=== PATIENT | male | born 1955 | race Caucasian/White ===

== ENCOUNTER 2018-12-25 10:55 | Emergency (ER) | payer BC ==
[~2018-12-25] VITALS: Ht 182.9 cm; Wt 106.6 kg
[~2018-12-25 10:55] MED LIST: ASPI325; CHLO25B PO; CYCL10 PO; HYDACE10B PO; HYDACE5 PO; IBUP800 PO; LISI20 PO; META800 PO; METF500 PO; NAPR500 PO; Norco 5-325 Ta1 EACH PO; PROPRANOLOL
[2018-12-25] MEDS ORDERED: LOPE2C PO (11:18)
[2018-12-25] MEDS ORDERED: DILTIAZEM 24HR120 M1 PO (11:18)
[2018-12-25] MEDS ORDERED: Spironolactone25 MG PO (11:19)
[2018-12-25] MEDS ORDERED: Neurontin 100100 MG PO (11:19)
[2018-12-25] MEDS ORDERED: HYDRA25 PO (11:19)
[2018-12-25] MEDS ORDERED: ATORVASTATIN CA40 MG PO (11:20)
== END 2018-12-25 13:29 | disposition home or self-care (01) ==
LOC: ER 10:55
DX: S06.9X9A Unspecified intracranial injury with loss of consciousness of unspecified duration, initial encounter (principal); S20.211A Contusion of right front wall of thorax, initial encounter; S40.011A Contusion of right shoulder, initial encounter; S30.0XXA Contusion of lower back and pelvis, initial encounter; J90 Pleural effusion, not elsewhere classified; R18.8 Other ascites; E11.9 Type 2 diabetes mellitus without complications; I10 Essential (primary) hypertension; F17.210 Nicotine dependence, cigarettes, uncomplicated; Z79.899 Other long term (current) drug therapy; W22.8XXA Striking against or struck by other objects, initial encounter
CPT/HCPCS: 70450; 71101; 99284-25

== ENCOUNTER 2019-01-04 14:49 | Day surgery (SDC) | payer OTHER ==
[~2019-01-04 14:49] MED LIST changes: +ATORVASTATIN CA40 MG PO; +DILTIAZEM 24HR120 M1 PO; +HYDRA25 PO; +LOPE2C PO; +Neurontin 100100 MG PO; +Spironolactone25 MG PO
== END 2019-01-04 22:35 | disposition home or self-care (01) ==
LOC: US 14:49
DX: R18.8 Other ascites (principal); K72.90 Hepatic failure, unspecified without coma
CPT/HCPCS: 49083

== ENCOUNTER 2019-02-07 10:43 | Emergency (ER) | payer OTHER ==
[~2019-02-07] VITALS: Ht 182.9 cm; Wt 99.8 kg
[2019-02-07] MEDS ORDERED: FURO40 PO (11:01)
[2019-02-07 11:50] LABS: BASOPHILS ABSOLUTE AUTO 0.06 K/mm3 (0.00-0.23); BASOPHILS PERCENT AUTO 1 % (0-2); EOSINOPHILS ABSOLUTE AUTO 0.24 K/mm3 (0.00-0.68); EOSINOPHILS PERCENT AUTO 4 % (0-6); Hematocrit 28.2 % (37.0-53.0); Hemoglobin 9.3 g/dL (13.5-17.5); IMMATURE GRAN ABSOLUTE AUTO 0.02 K/mm3 (0.00-0.10); IMMATURE GRAN PERCENT AUTO 0 % (0-1); LYMPHOCYTES PERCENT AUTO 6 % (21-46); MONOCYTES ABSOLUTE AUTO 0.59 K/mm3 (0.16-1.47); MONOCYTES PERCENT AUTO 9 % (4-13); Mean Corpuscular HGB 32.9 pg (26.0-34.0); Mean Corpuscular Volume 100 fL (80-100); Mean Platelet Volume 11.2 fL (9.1-12.4); NEUTROPHILS ABSOLUTE AUTO 5.05 K/mm3 (1.96-9.15); NEUTROPHILS PERCENT AUTO 79 % (41-73); Platelet Count 119 K/mm3 (150-400); RDW Coefficient Variation 14.2 % (11.7-14.2); RDW Standard Deviation 50.9 fL (35.1-46.3); Red Blood Cell Count 2.83 M/mm3 (4.30-5.90); White Blood Cell Count 6.36 K/mm3 (4.00-11.30)
[2019-02-07 12:12] LABS: Albumin, Blood 2.5 g/dL (3.4-5.0); Albumin/Globulin Ratio 0.4 (0.8-1.8); Bilirubin, Total 1.8 mg/dL (0.1-1.0); Bun/Creatinine Ratio 28.7 (12.0-20.0); Calcium, Blood 8.4 mg/dL (8.5-10.1); Creatinine, Blood 1.81 mg/dL (0.60-1.20); Globulin, Blood 5.7 g/dL (2.2-4.0); Potassium, Blood 5.1 mmol/L (3.5-5.5); Total Protein, Blood 8.2 g/dL (6.4-8.2)
[2019-02-07 13:00] LABS: Albumin, Body Fluid 0.5 g/dL
[2019-02-07 13:01] LABS: Automated BF WBC Count 0.423 K/mm3 (0-999); Body Fluid WBC Count 423 /mm3 (0-999); RBC Count, Body Fluid 360000 /mm3 (0-0)
[2019-02-07 14:16] LABS: Appearance, Body Fluid Bloody (Clear); Color, Body Fluid Red (None-Yellow); Total Cell Count, Body Fluid 100
[2019-02-09] MEDS ORDERED: CYCL10 PO (23:00)
[2019-02-10] MEDS ORDERED: ATEN25 PO (01:26)
[2019-02-10] MEDS ORDERED: CHLO25B PO (01:28)
[2019-02-10] MEDS ORDERED: CLOBET30L TOP (01:28)
[2019-02-10] MEDS ORDERED: GABA100 PO (01:29)
[2019-02-10] MEDS ORDERED: LISI20 PO (01:29)
[2019-02-10] MEDS ORDERED: ROXICODONE5 MG PO (01:30)
[2019-02-10] MEDS ORDERED: TORS10 PO (01:31)
[2019-02-10] MEDS ORDERED: SILD50TA PO (01:31)
== END 2019-02-07 13:20 | disposition home or self-care (01) ==
LOC: ER 10:43
PROVIDERS: Emergency Medicine
DX: R18.8 Other ascites (principal); K74.60 Unspecified cirrhosis of liver; I10 Essential (primary) hypertension; E11.9 Type 2 diabetes mellitus without complications; F17.210 Nicotine dependence, cigarettes, uncomplicated; Z79.899 Other long term (current) drug therapy
CPT/HCPCS: 36415; 49083; 80053; 82042; 85025; 89051; 99284-25

== ENCOUNTER 2019-02-14 17:00 | Inpatient (IN) | payer OTHER ==
[~2019-02-14] VITALS: Ht 182.9 cm; Wt 102.0 kg
[~2019-02-14 17:00] MED LIST changes: -ATORVASTATIN CA40 MG PO; +CLOBET30L TOP; -DILTIAZEM 24HR120 M1 PO; +FURO40 PO; +GABA100 PO; -LOPE2C PO; +ROXICODONE5 MG PO; -Spironolactone25 MG PO
[2019-02-14 18:14] LABS: BASOPHILS ABSOLUTE AUTO 0.01 K/mm3 (0.00-0.23); BASOPHILS PERCENT AUTO 0 % (0-2); EOSINOPHILS ABSOLUTE AUTO 0.02 K/mm3 (0.00-0.68); EOSINOPHILS PERCENT AUTO 0 % (0-6); Hematocrit 24.7 % (37.0-53.0); Hemoglobin 8.2 g/dL (13.5-17.5); IMMATURE GRAN ABSOLUTE AUTO 0.06 K/mm3 (0.00-0.10); IMMATURE GRAN PERCENT AUTO 1 % (0-1); LYMPHOCYTES PERCENT AUTO 4 % (21-46); MONOCYTES ABSOLUTE AUTO 0.89 K/mm3 (0.16-1.47); MONOCYTES PERCENT AUTO 10 % (4-13); Mean Corpuscular HGB 33.5 pg (26.0-34.0); Mean Corpuscular HGB Conc 33.2 g/dL (31.5-36.5); Mean Platelet Volume 11.3 fL (9.1-12.4); NEUTROPHILS ABSOLUTE AUTO 7.73 K/mm3 (1.96-9.15); NEUTROPHILS PERCENT AUTO 85 % (41-73); Platelet Count 139 K/mm3 (150-400); RDW Standard Deviation 58.9 fL (35.1-46.3); Red Blood Cell Count 2.45 M/mm3 (4.30-5.90); White Blood Cell Count 9.11 K/mm3 (4.00-11.30)
[2019-02-14 18:23] LABS: Mean Corpuscular Volume 101 fL (80-100)
[2019-02-14 18:28] LABS: Albumin, Blood 2.3 g/dL (3.4-5.0); Albumin/Globulin Ratio 0.4 (0.8-1.8); Bilirubin, Total 1.1 mg/dL (0.1-1.0); Bun/Creatinine Ratio 21.5 (12.0-20.0); Calcium, Blood 8.3 mg/dL (8.5-10.1); Creatinine, Blood 4.98 mg/dL (0.60-1.20); Globulin, Blood 5.2 g/dL (2.2-4.0); Potassium, Blood 5.7 mmol/L (3.5-5.5); Total Protein, Blood 7.5 g/dL (6.4-8.2)
[2019-02-14] MEDS ORDERED: TORS10 PO (21:41)
[2019-02-14] MEDS ORDERED: TRAZ50 PO (21:42)
[2019-02-14] MEDS ORDERED: DILTIAZEM 24HR120 M1 PO (21:43)
[2019-02-14] MEDS ORDERED: Spironolactone25 MG PO (21:43)
[2019-02-14] MEDS ORDERED: ATORVASTATIN CA40 MG PO (21:44)
[2019-02-14] MEDS ORDERED: ATEN25 PO (21:44)
[2019-02-14] MEDS ORDERED: Hygroton50 MG PO (21:46)
[2019-02-14] MEDS ORDERED: LOPE2C PO (21:48)
[2019-02-14] MEDS ORDERED: LISI20 PO (21:49)
[2019-02-14] MEDS ORDERED: SILD50TA PO (21:50)
[2019-02-14] MEDS ORDERED: MELATONIN5 M1 PO (21:51)
[2019-02-14] MEDS ORDERED: Vitamin D2000 UNIT PO (21:51)
[2019-02-14 22:04] LABS: PCO2 Arterial 29.4 mmHg (35-45); pH Blood Arterial 7.35 (7.35-7.45)
--- NOTE | 2019-02-15 01:59 | NUR ---
02/14/19 2310 PT ADMITTED TO PCU-4 PER CART FROM ER. 02/15/19 0045 CASTORENA CATHETER #16 FILIPINO INSERTED VIA STERILE TECHNIQUE WITH 50ML CLEAR YELLOW FLUID NOTED.
--- NOTE | 2019-02-15 02:45 | NUR ---
02/15/[address] AMARO CALLED AND UPDATED ON ALL LABS, INITIAL BLADDER SCAN REFLECTS AMOUNT > 999, PT DID VOID 200ML URINE AT 0030 (24 HOUR URINE STARTED). 0045 CASTORENA CATHETER PLACED WITH 50ML URINE NOTED INSTANT RETURN (TOLERATED PROCEDURE WELL).
--- NOTE | 2019-02-15 02:48 | NUR ---
SHIFT SUMMARY: 63 Y/O MALE RESTED HAD RESTLESS SHIFT AT TIMES, PT ABDOMINAL REGION HARD, ROUND TO TOUCH WITH ASCITES NOTED, DENIES RESPIRATORY DISTRESS, PT VOICED HE LIVES ALONE AND IS ESTRANGED FROM ALL HIS 4 KIDS AND FAMILIES WHOM ALL LIVE BACK IN [place], [place]. PT RECEIVING IV 1/2 NS WITH TWO AMPULES SODIUM BICARBONATE AT 75 ML/HR VIA PUMP. PT ATTEMPTED HAVE BM ON BSC WITH NO RESULTS, TRANSFERRED WITH MUCH DIFFICULTY AND REQUIRED TWO STANDBY ASSIST WITH BALANCE VERY UNSTEADY, BED IN LOW POSITION WITH CALL LIGHT AT SIDE, ALERT AND ORIENTED X 4.
[2019-02-15 03:54] LABS: BASOPHILS ABSOLUTE AUTO 0.01 K/mm3 (0.00-0.23); BASOPHILS PERCENT AUTO 0 % (0-2); EOSINOPHILS ABSOLUTE AUTO 0.04 K/mm3 (0.00-0.68); EOSINOPHILS PERCENT AUTO 1 % (0-6); Hematocrit 22.3 % (37.0-53.0); Hemoglobin 7.3 g/dL (13.5-17.5); IMMATURE GRAN ABSOLUTE AUTO 0.03 K/mm3 (0.00-0.10); IMMATURE GRAN PERCENT AUTO 1 % (0-1); LYMPHOCYTES ABSOLUTE AUTO 0.33 K/mm3 (0.84-5.20); LYMPHOCYTES PERCENT AUTO 5 % (21-46); MONOCYTES ABSOLUTE AUTO 0.62 K/mm3 (0.16-1.47); MONOCYTES PERCENT AUTO 10 % (4-13); Mean Corpuscular HGB 32.9 pg (26.0-34.0); Mean Corpuscular HGB Conc 32.7 g/dL (31.5-36.5); Mean Corpuscular Volume 101 fL (80-100); Mean Platelet Volume 10.8 fL (9.1-12.4); NEUTROPHILS ABSOLUTE AUTO 5.08 K/mm3 (1.96-9.15); NEUTROPHILS PERCENT AUTO 83 % (41-73); Platelet Count 116 K/mm3 (150-400); RDW Coefficient Variation 16.1 % (11.7-14.2); RDW Standard Deviation 57.3 fL (35.1-46.3); Red Blood Cell Count 2.22 M/mm3 (4.30-5.90); White Blood Cell Count 6.11 K/mm3 (4.00-11.30)
[2019-02-15 04:18] LABS: CPK Creatine Kinase 252 U/L (39-308); Magnesium, Blood 2.3 mg/dL (1.6-2.4); Uric Acid, Blood 10.4 mg/dL (3.5-7.2)
[2019-02-15 04:23] LABS: Alanine Aminotransfer (ALT/SGP 74 U/L (12-78); Albumin, Blood 2.4 g/dL (3.4-5.0); Albumin/Globulin Ratio 0.5 (0.8-1.8); Alk Phos 186 U/L (50-136); Anion Gap 9 mmol/L (6-16); Aspartate Aminotrans (AST/SGOT 193 U/L (12-37); Bilirubin, Total 1.1 mg/dL (0.1-1.0); Blood Urea Nitrogen 106 mg/dL (8-24); Bun/Creatinine Ratio 21.9 (12.0-20.0); CO2, Blood 19 mmol/L (21-32); Calcium, Blood 7.7 mg/dL (8.5-10.1); Chloride, Blood 103 mmol/L (98-108); Creatinine, Blood 4.83 mg/dL (0.60-1.20); Globulin, Blood 4.9 g/dL (2.2-4.0); Glomerular Filtration Rate 13 (60-); Glucose, Blood 178 mg/dL (70-99); Phosphorus, Blood 5.8 mg/dL (2.5-4.9); Sodium, Blood 131 mmol/L (136-145); Total Protein, Blood 7.3 g/dL (6.4-8.2)
--- NOTE | 2019-02-15 06:00 | NUR ---
ASSUMED CARE AT 0330. CONVERSIVE AND NO ACUTE PAIN OR DISCOMFORT. FOOD TAKEN AND NO GI DISTESS. PLACEDL CALL TO DR AMARO W/ LAB . ORDERS GIVEN AND ESTABLISHED . SOME FINGER AND LEG MUSCLE CRAMPING IS ONLY COMPLAINT.MEALL GIVEN POST TALKING W/ AIRPORT OPERATIONS SUPERVISOR
--- NOTE | 2019-02-15 11:34 | NUR ---
PT TAKEN TO IMAGING. WILL AWAIT RETURN.
--- NOTE | 2019-02-15 12:35 | NUR ---
PT RETURNED. PER REPORT 5L REMOVED DURING PARACENTESIS. VS STABLE. PT REPORTS FEELING "BETTER". PT STATES IT IS EASIER TO BREATHE AND NOT MUCH PRESSURE ON HIS ABD. WILL CONTINUE TO MONITOR CLOSELY.
[2019-02-15 13:15] LABS: Automated BF RBC Count 0.414 M/mm3 (0-0); Automated BF WBC Count 0.239 K/mm3 (0-999); Body Fluid WBC Count 239 /mm3 (0-999); RBC Count, Body Fluid 414000 /mm3 (0-0)
--- NOTE | 2019-02-15 13:48 | NUR ---
Spiritual care visit conducted. Patient is lying in bed and alert. Patient immediately tells me about his medical condition, his family unit complications, and his service in the [employer]. Patient begins to tell me about how he is coping and patient's doctor came in and tried to regain the therapeutic alliance that was occuring and we were interupted again as patient was taken from his room for a procedure. I will continue to remain available to patient and family.
[2019-02-15 14:46] LABS: Appearance, Body Fluid Bloody (Clear); Color, Body Fluid Red (None-Yellow); Total Cell Count, Body Fluid 100
[2019-02-15 15:09] LABS: BASOPHILS ABSOLUTE AUTO 0.01 K/mm3 (0.00-0.23); BASOPHILS PERCENT AUTO 0 % (0-2); EOSINOPHILS ABSOLUTE AUTO 0.04 K/mm3 (0.00-0.68); EOSINOPHILS PERCENT AUTO 1 % (0-6); Hematocrit 22.9 % (37.0-53.0); Hemoglobin 7.5 g/dL (13.5-17.5); IMMATURE GRAN ABSOLUTE AUTO 0.03 K/mm3 (0.00-0.10); IMMATURE GRAN PERCENT AUTO 1 % (0-1); LYMPHOCYTES ABSOLUTE AUTO 0.33 K/mm3 (0.84-5.20); LYMPHOCYTES PERCENT AUTO 5 % (21-46); MONOCYTES ABSOLUTE AUTO 0.89 K/mm3 (0.16-1.47); MONOCYTES PERCENT AUTO 14 % (4-13); Mean Corpuscular HGB 32.8 pg (26.0-34.0); Mean Corpuscular HGB Conc 32.8 g/dL (31.5-36.5); Mean Corpuscular Volume 100 fL (80-100); NEUTROPHILS ABSOLUTE AUTO 5.13 K/mm3 (1.96-9.15); NEUTROPHILS PERCENT AUTO 80 % (41-73); Platelet Count 102 K/mm3 (150-400); RDW Coefficient Variation 16.1 % (11.7-14.2); Red Blood Cell Count 2.29 M/mm3 (4.30-5.90); White Blood Cell Count 6.43 K/mm3 (4.00-11.30)
--- NOTE | 2019-02-15 17:53 | NUR ---
SHIFT SUMMARY PT ALERT AND ORIENTED. VS STABLE. O2 SATS REMAIN ABOVE 90% ON RA. BP STABLE. PT RECEIVING 1U PRBC AT THIS TIME WITHOUT ANY SIGNS/SYMPTOMS OF TRANSFUSION REACTION. PT DENIES ANY PAIN. CASTORENA PATENT AND DRAINING. PT AMBULATING IN ROOM WITH SBA AND FWW. WILL CONTINUE TO MONITOR AND REPORT TO ONCOMING RN. CALL LIGHT IN REACH. PT SITTING UP EATING DINNER.
[2019-02-16 02:22] LABS: Protein, Urine Quantitative 40.3 mg/dL (0.0-11.9)
[2019-02-16 03:37] LABS: BASOPHILS ABSOLUTE AUTO 0.01 K/mm3 (0.00-0.23); BASOPHILS PERCENT AUTO 0 % (0-2); EOSINOPHILS ABSOLUTE AUTO 0.02 K/mm3 (0.00-0.68); EOSINOPHILS PERCENT AUTO 0 % (0-6); Hematocrit 25.7 % (37.0-53.0); Hemoglobin 8.5 g/dL (13.5-17.5); IMMATURE GRAN ABSOLUTE AUTO 0.04 K/mm3 (0.00-0.10); IMMATURE GRAN PERCENT AUTO 1 % (0-1); LYMPHOCYTES ABSOLUTE AUTO 0.34 K/mm3 (0.84-5.20); LYMPHOCYTES PERCENT AUTO 5 % (21-46); MONOCYTES PERCENT AUTO 11 % (4-13); Mean Corpuscular HGB 31.6 pg (26.0-34.0); Mean Corpuscular HGB Conc 33.1 g/dL (31.5-36.5); Mean Platelet Volume 10.5 fL (9.1-12.4); NEUTROPHILS ABSOLUTE AUTO 5.36 K/mm3 (1.96-9.15); NEUTROPHILS PERCENT AUTO 83 % (41-73); Platelet Count 113 K/mm3 (150-400); RDW Coefficient Variation 15.9 % (11.7-14.2); RDW Standard Deviation 54.4 fL (35.1-46.3); Red Blood Cell Count 2.69 M/mm3 (4.30-5.90); White Blood Cell Count 6.47 K/mm3 (4.00-11.30)
[2019-02-16 03:54] LABS: Mean Corpuscular Volume 96 fL (80-100)
[2019-02-16 03:59] LABS: Albumin, Blood 2.6 g/dL (3.4-5.0); Albumin/Globulin Ratio 0.6 (0.8-1.8); Bilirubin, Total 1.9 mg/dL (0.1-1.0); Bun/Creatinine Ratio 25.2 (12.0-20.0); Calcium, Blood 7.8 mg/dL (8.5-10.1); Creatinine, Blood 3.89 mg/dL (0.60-1.20); Globulin, Blood 4.4 g/dL (2.2-4.0); Magnesium, Blood 2.3 mg/dL (1.6-2.4); Phosphorus, Blood 4.7 mg/dL (2.5-4.9); Potassium, Blood 4.8 mmol/L (3.5-5.5)
--- NOTE | 2019-02-16 05:30 | NUR ---
SHIFT SUMMARY PT SLEEPING IN ROOM COMFORTABLY AT THIS TIME. PT HAD SOME CHANGES IN MENTAL STATUS T/O NIGHT. AT START OF SHIFT PT WAS AOX4 AND ADIMENTLY REFUSED TO TAKE NIGHT TIME DOSE OF LACTULOSE. MED WAS HELD AND DOCUMENTED NOT GIVEN. SHIFT PROCEDED, PT BECAME MORE ALTERED,AND WAS GETTING OUT OF BED AND UNSTEADY ON FEET. BED ALARM WAS INITIATED ON PT, AND PT SET ALRM OFF MULITPLE TIMES. PM DOSE OF LACTULOSE WAS THEN GIVEN AFTER DISCUSSION WITH C D REACTOR OPERATOR, GIVEN NONSCHEDULED D/T PT AMS. PT WAS ABLE TO TOLERATE PO INTAKE OF LACTULOSE WELL. PT HAS SINCE APPEARED TO BE MORE RELAXED IN ROOM AND SLEEPING MORE RESTFULLY. RESP EVEN UNLABORED ON RA W/ SATS >92%. PT DENIED PAIN T/O NIGHT. MULTIPLE SOFT STOOLS NOTED. CALL [facility] IN REACH. BED ALARM ON.
--- NOTE | 2019-02-16 07:38 | NUR ---
pt laying in bed on his side, wakes up enough to answer a few questions, returns to sleep immed, vs stable, he knows where he is, attempts to follow commands, needs lots of reminders, lungs are clear, dim t/o, resp even and unlabored, no cough noted, hrr, tele in place running sr per monitor, see strip, no edema noted, ppp+2, cap refill <3sec, vs stable afebrile, iv site is clear and patent, abd very distended, firm, hernandez cath draining clear yellow urine, skin ok, maew, zahida, call light in reach.
--- NOTE | 2019-02-16 12:33 | NUR ---
pt laying on his side sleeping when not being disturbed, no changes since morning, eating a bit of lunch. has got himself tangled in his gown several times, a bit confused. call light in reach.
--- NOTE | 2019-02-16 18:12 | NUR ---
pt has slept most of the day, he is easier to wake as the day progresses, no acute changes, call light in reach.
[2019-02-17 03:59] LABS: Hematocrit 24.7 % (37.0-53.0); Hemoglobin 8.3 g/dL (13.5-17.5)
[2019-02-17 04:24] LABS: Albumin, Blood 2.5 g/dL (3.4-5.0); Anion Gap 8 mmol/L (6-16); Blood Urea Nitrogen 95 mg/dL (8-24); Bun/Creatinine Ratio 29.2 (12.0-20.0); CO2, Blood 23 mmol/L (21-32); Chloride, Blood 106 mmol/L (98-108); Creatinine, Blood 3.25 mg/dL (0.60-1.20); Glomerular Filtration Rate 21 (60-); Glucose, Blood 162 mg/dL (70-99); Magnesium, Blood 2.2 mg/dL (1.6-2.4); Phosphorus, Blood 4.3 mg/dL (2.5-4.9); Potassium, Blood 4.6 mmol/L (3.5-5.5); Sodium, Blood 137 mmol/L (136-145)
--- NOTE | 2019-02-17 06:31 | NUR ---
SHIFT SUMMARY PT SLEEPING IN ROOM COMFORTABLY AT THIS TIME. PT HAS HAD AMS T/O NIGHT. PT APPEARED TO BE MORE ORIENTED TO SURROUNDINGS AT START OF SHIFT, PT WAS ABLE TO STATE HE WAS IN A HOSPITAL, BUT UNABLE TO STATE DATE, OR WHY HE WAS THERE. PT BECAME SIGNIFICANTLY MORE AGGITATED IN ROOM T/O NIGHT, CONTINUED TO GET OUT OF BED SETTING OFF BED ALARM. PT IS VERY UNSTEADY ON FEET AND MULTIPLE STAFF MEMBERS WERE NEEDED TO ASSIST PT BACK TO BED. THIS AM AT APPROX 0500 PT BECAME MORE COMBATIVE AND REFUSED TO FOLLOW DIRECTIONS AFTER ATTEMPTING TO GET OUT OF BED AND NEARLYING FALLING TWICE, AND HAVING TO BE STEADIED BY STAFF. PT CONTINUED TO REFUSE TO GET BACK INTO BED. 4 STAFF MEMBERS WERE REQUIRED TO GET PT BACK INTO BED AND BOOSTED. PROVIDER CALLED FOR RATNA VEST FOR PT SAFETY. VEST APPLIED TO PT PER ORDERS. RESP EVEN UNLABORED ON RA W/ SATS >92%. SODIUM BICARB INFUSING IN PIV. CALL IGHT IN REACH. BED ALARM REMAINS ON FOR SAFETY.
[2019-02-17 07:08] LABS: ANTIGLOMERULAR BM AB 4 units (0-20)
[2019-02-17 08:38] LABS: International Normalized Ratio 1.45; Prothrombin Time Results 14.9 Sec (9.7-11.5)
[2019-02-17 13:07] LABS: ANA DIRECT Negative (Negative); ANTIMYELOPEROXIDASE (MPO) ABS <9.0 U/mL (0.0-9.0); ANTIPROTEINASE 3 (PR-3) ABS 13.1 U/mL (0.0-3.5); ATYPICAL PANCA <1:20 titer (Neg:<1:20); CYTOPLASMIC (C-ANCA) <1:20 titer (Neg:<1:20); PERINUCLEAR (P-ANCA) <1:20 titer (Neg:<1:20)
[2019-02-17 16:06] LABS: A/G RATIO 0.7 (0.7-1.7); ALBUMIN 2.6 g/dL (2.9-4.4); ALPHA-1-GLOBULIN 0.3 g/dL (0.0-0.4); ALPHA-2-GLOBULIN 0.4 g/dL (0.4-1.0); BETA GLOBULIN 0.8 g/dL (0.7-1.3); GAMMA GLOBULIN 2.5 g/dL (0.4-1.8); IMMUNOGLOBULIN A, QN, SERUM 519 mg/dL (61-437); IMMUNOGLOBULIN G, QN, SERUM 2474 mg/dL (700-1600); IMMUNOGLOBULIN M, QN, SERUM 113 mg/dL (20-172); M-SPIKE Not Observed g/dL (Not Observed); PROTEIN, TOTAL, SERUM 6.6 g/dL (6.0-8.5)
[2019-02-17 16:06] LABS: Automated BF RBC Count 0.212 M/mm3 (0-0); Automated BF WBC Count 0.218 K/mm3 (0-999); Body Fluid WBC Count 218 /mm3 (0-999); RBC Count, Body Fluid 212000 /mm3 (0-0)
[2019-02-17 16:30] LABS: Glucose, Body Fluid 178 mg/dL; Protein, Body Fluid 1.6 g/dL
[2019-02-17 16:50] LABS: Appearance, Body Fluid Cloudy (Clear); Color, Body Fluid Red (None-Yellow); Total Cell Count, Body Fluid 100
--- NOTE | 2019-02-17 18:05 | NUR ---
SHIFT SUMMARY PT RESTING IN BED THROUGHOUT THE DAY. ALERT AND ORIENTED TO SELF THIS AM, NOT FOLLOWING COMMANDS WELL. ORIENTED TO SELF AND PLACE THIS AFTERNOON, FOLLOWING COMMANDS MORE APPROPRIATELY. DENIES PAIN THROUGHOUT THE DAY. VSS. PT AGITATED THE MAJORITY OF THE DAY, TRYING TO GET OUT OF BED AND PULLING AT LINES, YELLING AT TIMES. PT AGITATED THROUGHOUT THE ULTRASOUND. RADIOLOGIST REQUESTS SEDATION FOR PARACENTESIS. ABDOMEN SEVERELY DISTENDED, US GUIDED PARACENTESIS DONE IN IMAGING, 9.5L REMOVED, PT TOLERATED WELL. PT SLEEPING THROUGHOUT THE AFTERNOON. WILL CONTINUE TO MONITOR AND REPORT OFF TO RITUAL CIRCUMCISER RN.
--- NOTE | 2019-02-18 | NUR ---
RATNA NAVA D/C'D pt alert and oriented, following commands. No longer pulling on lines, AMS clearing. Pt no longer requiring restraint to maintain safety, pt with pleasant affect at this time, calm and cooperative with care.
[2019-02-18 03:47] LABS: BASOPHILS ABSOLUTE AUTO 0.02 K/mm3 (0.00-0.23); BASOPHILS PERCENT AUTO 0 % (0-2); EOSINOPHILS ABSOLUTE AUTO 0.21 K/mm3 (0.00-0.68); EOSINOPHILS PERCENT AUTO 5 % (0-6); Hematocrit 30.7 % (37.0-53.0); Hemoglobin 10.1 g/dL (13.5-17.5); IMMATURE GRAN ABSOLUTE AUTO 0.01 K/mm3 (0.00-0.10); IMMATURE GRAN PERCENT AUTO 0 % (0-1); LYMPHOCYTES PERCENT AUTO 7 % (21-46); MONOCYTES ABSOLUTE AUTO 0.44 K/mm3 (0.16-1.47); MONOCYTES PERCENT AUTO 10 % (4-13); Mean Corpuscular HGB 32.1 pg (26.0-34.0); Mean Corpuscular HGB Conc 32.9 g/dL (31.5-36.5); Mean Corpuscular Volume 98 fL (80-100); Mean Platelet Volume 10.9 fL (9.1-12.4); NEUTROPHILS PERCENT AUTO 78 % (41-73); Platelet Count 117 K/mm3 (150-400); RDW Coefficient Variation 15.8 % (11.7-14.2); RDW Standard Deviation 55.8 fL (35.1-46.3); Red Blood Cell Count 3.15 M/mm3 (4.30-5.90); White Blood Cell Count 4.48 K/mm3 (4.00-11.30)
[2019-02-18 04:01] LABS: International Normalized Ratio 1.36
[2019-02-18 04:06] LABS: Albumin, Blood 3.4 g/dL (3.4-5.0); Albumin/Globulin Ratio 0.8 (0.8-1.8); Bilirubin, Total 1.5 mg/dL (0.1-1.0); Bun/Creatinine Ratio 32.8 (12.0-20.0); Calcium, Blood 8.5 mg/dL (8.5-10.1); Creatinine, Blood 2.65 mg/dL (0.60-1.20); Globulin, Blood 4.5 g/dL (2.2-4.0); Magnesium, Blood 2.4 mg/dL (1.6-2.4); Phosphorus, Blood 3.5 mg/dL (2.5-4.9); Potassium, Blood 4.1 mmol/L (3.5-5.5); Total Protein, Blood 7.9 g/dL (6.4-8.2)
--- NOTE | 2019-02-18 06:20 | NUR ---
Shift Summary Overall, pt improved this shift. AMS clearing substantially, pt is now alert and oriented x4, following commands appropriately, calm and cooperative with care. Josephine d/c'd this shift. VSS. pt with no acute declines this shift, no acute concerns to note. See shift assessment for detailed assessment. Pt remains stable on RA. Moving all extremities appropriately, SBA to BSC with improved strength. Pt has been calling appropriately to make needs known this shift. OVerall, status improved.
--- NOTE | 2019-02-18 08:59 | NUR ---
AM NOTE. ASSUMED CARE OF PT APROX 0700. PT IS A&Ox4. PT WAS ADMITTED FOR RENAL FAILURE. PT HAD PARACENTESIS YESTERDAY. PT'S VS STABLE. PT DENIES PAIN AT THIS TIME. PT SBA TO THE CHAIR FOR BREAKFAST. CASTORENA PATENT AND DRAINING TO GRAVITY. CALL LIGHT IN REACH, BED IS LOCKED AND LOW WILL CONTINUE TO MONITOR.
--- NOTE | 2019-02-18 10:56 | NUR ---
Initial palliative care consult: Juan is a 63 year old with a history of cirrohsis of the liver, history of Hep C s/p medications for curative tx, HTN, and DM type 2. Juan lives alone in a 33 ft trailer in [place] with his dog. He tells this commercial insurance underwriter his friend, Moris Mcdonald, is his alternative decision maker. He was admitted on 02/14/19 with increasing weakness, muscle cramps, worsening edema. He reports he was helping his friend move a refrigerator about 8 weeks ago when he sustained a fall and hit his ribs and head. He reports he did not seek medical attention until about 6 days later and he had some fractured ribs on the right. He reports that prior to this injury he was independent, walked his dog a couple times a week and enjoyed going for drives. He reports that over the past two weeks that he has become weaker, has had a poor appetite and weight gain. Cramps that were worsening and not going away was the reason that he sought medical attention for this admit. He [facility], [facility]. He reports he has had to cancel the last two appointments with Vasquez as he has been ill. He receives his medications through the [facility]. His first ever paracentesis was last Thursday. He has had two additional paracentesis in the past week. His abdomen remains distended, however he reports he is feeling much better, his appetite has improved and he currently denies pain and nausea. He reports the ringing he had in his ears is now gone. He is hoping to go home soon. He reports that he quit smoking about a week ago and is currently using a 7 mg nicotine patch. He reports he has "Smoked for forever" and states that his beloved dog, Monique, is the reason he quit. "I don't want to expose her to my second hand smoke." Juan reports he doesn't remember much about yesterday, however he points to the cheyenne vest in the corner of the room and tells me that he had to wear it yesterday. He is being followed by GI and nephro as well as the hospitalist. He reports Dr. Jones visited with him briefly this morning as well as Dr. Ritchie. He doesn't remember seeing the GI doctor yesterday. Progress notes reviewed from physicians. Asked Juan if anyone has ever mentioned to him about a liver transplant. Juan reports he has talked with his PCP at the [facility] about a liver transplant once, quite awhile ago. He reports that he would like to talk to the PCP again to find out more information about the process for a liver transplant. He is unsure if he would want to consider that option without finding out more information. Disease process education started. Discussed code status and AD/POLST. He reports that he does not believe he has either of these documents at the [facility]. AD booklet left on his bedside table per his request. He confirms his full code status at this time and states that his friend Moris Mcdonald will have to medical decisions for him if necessary. Will contact the [facility] medical records department to see if he does in fact have one of these forms on file in their system. PC will continue to follow for disease process education, symptom management, completion of AD if pt chooses to fill out while in the hospital and advanced care planning.
--- NOTE | 2019-02-18 17:31 | NUR ---
SHIFT SUMMARY PATIENT IS PLEASANT, ALERT AND ORIENTED. MOVES AROUND INDEPENDENTLY TO STAND BY ASSIST. DOES CALL APPROPRIATELY. NO ACUTE CONCERNS AT THIS TIME. TRANSFER FROM PCU TODAY. PATIENT DENIES PAIN, STATES HE IS FEELING BETTER TODAY.
--- NOTE | 2019-02-19 02:39 | NUR ---
SHIFT SUMMARY AOX4. IND TO BSC, OTHERWISE SBA. LS CLEAR, DENIES SOB. NO C/O NAUSEA OR PAIN. ASCITES, NON-TENDER ABDOMEN BUT FIRM. SCATTERED BRUISING THROUGHOUT. IV IN R FOREARM HAS NS @ 50. CASTORENA DRAINING CLEAR MATHEW URINE. BLOOD GLUCOSE BEFORE MEALS. VSS ON RA. UNSURE OF DC PLAN AT THIS TIME. NO COMPLAINTS OVERNIGHT.
[2019-02-19 05:17] LABS: BASOPHILS ABSOLUTE AUTO 0.02 K/mm3 (0.00-0.23); BASOPHILS PERCENT AUTO 0 % (0-2); EOSINOPHILS ABSOLUTE AUTO 0.25 K/mm3 (0.00-0.68); EOSINOPHILS PERCENT AUTO 5 % (0-6); Hemoglobin 9.7 g/dL (13.5-17.5); IMMATURE GRAN ABSOLUTE AUTO 0.02 K/mm3 (0.00-0.10); IMMATURE GRAN PERCENT AUTO 0 % (0-1); LYMPHOCYTES ABSOLUTE AUTO 0.34 K/mm3 (0.84-5.20); LYMPHOCYTES PERCENT AUTO 7 % (21-46); MONOCYTES ABSOLUTE AUTO 0.64 K/mm3 (0.16-1.47); MONOCYTES PERCENT AUTO 12 % (4-13); Mean Corpuscular HGB 31.4 pg (26.0-34.0); Mean Corpuscular HGB Conc 32.3 g/dL (31.5-36.5); Mean Corpuscular Volume 97 fL (80-100); Mean Platelet Volume 11.3 fL (9.1-12.4); NEUTROPHILS ABSOLUTE AUTO 3.99 K/mm3 (1.96-9.15); NEUTROPHILS PERCENT AUTO 76 % (41-73); Platelet Count 102 K/mm3 (150-400); RDW Coefficient Variation 15.8 % (11.7-14.2); RDW Standard Deviation 55.3 fL (35.1-46.3); Red Blood Cell Count 3.09 M/mm3 (4.30-5.90); White Blood Cell Count 5.26 K/mm3 (4.00-11.30)
[2019-02-19 05:29] LABS: International Normalized Ratio 1.32; Prothrombin Time Results 13.6 Sec (9.7-11.5)
[2019-02-19 05:56] LABS: Albumin, Blood 2.7 g/dL (3.4-5.0); Albumin/Globulin Ratio 0.6 (0.8-1.8); Bilirubin, Total 1.2 mg/dL (0.1-1.0); Bun/Creatinine Ratio 35.3 (12.0-20.0); Calcium, Blood 8.1 mg/dL (8.5-10.1); Creatinine, Blood 2.38 mg/dL (0.60-1.20); Globulin, Blood 4.2 g/dL (2.2-4.0); Magnesium, Blood 2.4 mg/dL (1.6-2.4); Phosphorus, Blood 3.5 mg/dL (2.5-4.9); Potassium, Blood 4.3 mmol/L (3.5-5.5); Total Protein, Blood 6.9 g/dL (6.4-8.2)
--- NOTE | 2019-02-19 15:33 | NUR ---
CASTORENA AND NAUSEA: PATIENT REPORTING NAUSEA AND REQUESTING DISCONTINUATION OF THE CASTORENA CATHETER. NO CURRENT NEED FOR CASTORENA NOTED. DISCUSSED WITH DR. ELLIOTT. NEW ORDERS RECEIVED FOR NAUSEA AND AGREEMENT FOR THE CATHETER TO BE PULLED.
--- NOTE | 2019-02-19 16:11 | NUR ---
SUMMARY: PATIENT DENIED PAIN THROUGHOUT SHIFT. PATIENT UP TO BATHROOM WITH SBA. PATIENT CALLS APPROPRIATELY. PATIENT DENIES PAIN OR DIFFICULTY BREATHING RELATED TO ASCITES. PATIENT REPORTED NAUSEA AND VOMITING THIS AFTERNOON. DISCUSSED WITH DR. NAQVI. NEW ORDERS FOR ZOFRAN. ALSO DISCUSSED NEED TO CASTORENA. NEW ORDER TO D/C CASTORENA CATHETER. PATIENT TOLERATING IV FLUIDS WELL. NO CHANGES TO LUNG SOUNDS, SOB OR DIFFICULTY BREATHING.
--- NOTE | 2019-02-19 18:02 | NUR ---
Shift Summary Received report from GISSEL Huertas. Patient denies nausea and vomiting, no other acute changes since this RN assumed care.
[2019-02-20 04:10] LABS: BASOPHILS ABSOLUTE AUTO 0.02 K/mm3 (0.00-0.23); BASOPHILS PERCENT AUTO 0 % (0-2); EOSINOPHILS ABSOLUTE AUTO 0.14 K/mm3 (0.00-0.68); EOSINOPHILS PERCENT AUTO 2 % (0-6); Hemoglobin 10.1 g/dL (13.5-17.5); IMMATURE GRAN ABSOLUTE AUTO 0.02 K/mm3 (0.00-0.10); IMMATURE GRAN PERCENT AUTO 0 % (0-1); LYMPHOCYTES ABSOLUTE AUTO 0.27 K/mm3 (0.84-5.20); LYMPHOCYTES PERCENT AUTO 5 % (21-46); MONOCYTES ABSOLUTE AUTO 0.62 K/mm3 (0.16-1.47); MONOCYTES PERCENT AUTO 10 % (4-13); Mean Corpuscular HGB 31.9 pg (26.0-34.0); Mean Corpuscular HGB Conc 32.6 g/dL (31.5-36.5); Mean Corpuscular Volume 98 fL (80-100); Mean Platelet Volume 11.4 fL (9.1-12.4); NEUTROPHILS ABSOLUTE AUTO 4.91 K/mm3 (1.96-9.15); NEUTROPHILS PERCENT AUTO 82 % (41-73); Platelet Count 101 K/mm3 (150-400); RDW Coefficient Variation 15.4 % (11.7-14.2); RDW Standard Deviation 55.7 fL (35.1-46.3); Red Blood Cell Count 3.17 M/mm3 (4.30-5.90); White Blood Cell Count 5.98 K/mm3 (4.00-11.30)
[2019-02-20 04:27] LABS: Albumin, Blood 2.7 g/dL (3.4-5.0); Anion Gap 6 mmol/L (6-16); Blood Urea Nitrogen 82 mg/dL (8-24); Bun/Creatinine Ratio 33.2 (12.0-20.0); CO2, Blood 24 mmol/L (21-32); Calcium, Blood 8.3 mg/dL (8.5-10.1); Chloride, Blood 106 mmol/L (98-108); Creatinine, Blood 2.47 mg/dL (0.60-1.20); Glomerular Filtration Rate 28 (60-); Glucose, Blood 175 mg/dL (70-99); Magnesium, Blood 2.3 mg/dL (1.6-2.4); Phosphorus, Blood 3.8 mg/dL (2.5-4.9); Potassium, Blood 4.2 mmol/L (3.5-5.5); Sodium, Blood 136 mmol/L (136-145)
--- NOTE | 2019-02-20 04:30 | NUR ---
SHIFT SUMMARY AOX4. LS CLEAR, DENIES SOB. NAUSEA HAS BEEN MAIN COMPLAINT. ZOFRAN GIVEN @ 2230 AND PHENERGAN @ 0030. PT HAD SLIGHT HEADACHE LAST NIGHT. R FOREARM IV HAS NS @ 50. INDEPENDENT. ABDOMEN IS STILL FIRM D/T ASCITES. POSSIBLE TAP TODAY. PLAN IS OUTPT TAP 2X WEEK. BLOOD GLUCOSE CHECKS BEFORE MEALS. REFUSED LACTULOSE. VSS ON RA.
[2019-02-20 08:37] LABS: Albumin, Blood 2.7 g/dL (3.4-5.0)
[2019-02-20 15:06] LABS: HEPATITIS C QUANTITATION HCV Not Detected IU/mL (.)
--- NOTE | 2019-02-20 18:06 | NUR ---
SHIFT SUMMARY PATIENT IS PLEASANT, ALERT AND ORIENTED, INDEPENDENT. NO ACUTE CONCERNS AT THIS TIME. HE HAD A PARACENTESIS TODAY WHERE THEY PULLED 8800 CC OF RED FLUID FROM HIS ABDOMEN, PATIENT IS VERY PLEASANT AND STATES HE FEELS MUCH BETTER. SUPPOSED TO DISCHARGE TOMORROW. HIS EX-'S NUMBER IS ON THE BOARD AND SHE REQUESTS ( WELL THE PATIENT) THAT SHE BE CALLED WHEN THE DOCTOR IS TO SEE THE PATIENT TOMORROW IN ORDER TO ASK QUESTIONS ABOUT HIS DISCHARGE.
--- NOTE | 2019-02-20 22:20 | NUR ---
RECEIVED 3RD OF 3 BOTTLES OF ALBUMIN PER MD ORDERS. TOLERATED WELL.
--- NOTE | 2019-02-21 02:55 | NUR ---
RESTING QUIETLY AT INTERVALS. ALBUMIN BOTTLE # 3 INFUSED, ivf INFUSING ORDERED. ONE EPISODE OF NAUSEA, NO EMESIS, AT WHICH TIME HE RECEIVED ZOFRAN. SEE MAR FOR DETAILS. ABD REMAINS DISTENDED. CALL LIGHT IN REACH. ABLE TO AMBLATE WITHOUT ASSIST.
[2019-02-21 04:07] LABS: BASOPHILS ABSOLUTE AUTO 0.01 K/mm3 (0.00-0.23); BASOPHILS PERCENT AUTO 0 % (0-2); EOSINOPHILS ABSOLUTE AUTO 0.08 K/mm3 (0.00-0.68); EOSINOPHILS PERCENT AUTO 1 % (0-6); Hematocrit 30.3 % (37.0-53.0); IMMATURE GRAN ABSOLUTE AUTO 0.03 K/mm3 (0.00-0.10); IMMATURE GRAN PERCENT AUTO 0 % (0-1); LYMPHOCYTES ABSOLUTE AUTO 0.26 K/mm3 (0.84-5.20); LYMPHOCYTES PERCENT AUTO 4 % (21-46); MONOCYTES PERCENT AUTO 10 % (4-13); Mean Corpuscular HGB 31.8 pg (26.0-34.0); Mean Corpuscular Volume 97 fL (80-100); Mean Platelet Volume 10.6 fL (9.1-12.4); NEUTROPHILS ABSOLUTE AUTO 6.15 K/mm3 (1.96-9.15); NEUTROPHILS PERCENT AUTO 85 % (41-73); Platelet Count 82 K/mm3 (150-400); RDW Coefficient Variation 15.3 % (11.7-14.2); RDW Standard Deviation 53.8 fL (35.1-46.3); Red Blood Cell Count 3.14 M/mm3 (4.30-5.90); White Blood Cell Count 7.23 K/mm3 (4.00-11.30)
[2019-02-21 04:26] LABS: Magnesium, Blood 2.4 mg/dL (1.6-2.4)
[2019-02-21 04:27] LABS: Albumin, Blood 2.9 g/dL (3.4-5.0); Albumin/Globulin Ratio 0.6 (0.8-1.8); Bilirubin, Total 1.3 mg/dL (0.1-1.0); Bun/Creatinine Ratio 33.5 (12.0-20.0); Calcium, Blood 8.6 mg/dL (8.5-10.1); Creatinine, Blood 2.45 mg/dL (0.60-1.20); Globulin, Blood 4.6 g/dL (2.2-4.0); Potassium, Blood 3.9 mmol/L (3.5-5.5); Total Protein, Blood 7.5 g/dL (6.4-8.2)
[2019-02-21] MEDS ORDERED: ACET325 PO (12:00)
[2019-02-21] MEDS ORDERED: LACT10SY PO (12:00)
[2019-02-21] MEDS ORDERED: MIDO5 PO (12:01)
[2019-02-21] MEDS ORDERED: NEOM500 PO (12:02)
[2019-02-21] MEDS ORDERED: NICOTINE1 EACH TOP (12:02)
[2019-02-21] MEDS ORDERED: Pedi-Dri 100,0060 GM TOP (12:04)
[2019-02-21] MEDS ORDERED: PROM12.5S PR (12:06)
[2019-02-21] MEDS ORDERED: ONDA4ODT PO (12:06)
--- NOTE | 2019-02-21 14:18 | NUR ---
1224 PT DISCHARGED HOME VIA PERSONAL VEHICLE. IV REMOVED THIS AM IT WAS LEAKING. D/C PAPERWORK REVIEWED WITH PT AND COPY PROVIDED. PT ACKNOWLEDGED UNDERSTANING. [facility], FOLLOW UP APPOINTMENT MADE WITH DR. AMARO, APPOINTMENT WITH MD AT [facility] ALREADY SCHEDULED FOR FIRST THURSDAY OF NEXT MONTH PER PT REPORT. NO NEW CHANGES OR CONCERNS.
[2019-02-21 16:06] LABS: M-SPIKE, % Not Observed % (Not Observed); PROTEIN,TOTAL,URINE 26.6 mg/dL (Not Estab.)
== END 2019-02-21 12:23 | disposition home health service (06) | DRG 441 ==
LOC: ER 17:00 → PCU 20:18 → MEDS 02-18 14:35 → ENPENDDIS 02-21 10:56 → MEDS 02-21 12:23
PROVIDERS: Family Medicine; Internal Medicine Nephrology; Nurse Practitioner Acute Care; Physician Assistant; Student in an Organized Health Care Education/Training Program; ADMIT Hospitalist
PROC: 0W9G3ZX Drainage of Peritoneal Cavity, Percutaneous Approach, Diagnostic (ICD-10-PCS; principal; 2019-02-15)
DX: K76.7 Hepatorenal syndrome (principal); N17.0 Acute kidney failure with tubular necrosis; I12.0 Hypertensive chronic kidney disease with stage 5 chronic kidney disease or end stage renal disease; N18.5 Chronic kidney disease, stage 5; E87.1 Hypo-osmolality and hyponatremia; E87.2 Acidosis; F10.20 Alcohol dependence, uncomplicated; K70.31 Alcoholic cirrhosis of liver with ascites; E11.22 Type 2 diabetes mellitus with diabetic chronic kidney disease; F17.210 Nicotine dependence, cigarettes, uncomplicated; E78.5 Hyperlipidemia, unspecified; D63.1 Anemia in chronic kidney disease; B19.20 Unspecified viral hepatitis C without hepatic coma; E87.5 Hyperkalemia
CPT/HCPCS: 36415; 36600; 49083; 51702; 76705; 76770; 80053; 80069; 81050; 82040; 82105; 82140; 82550; 82784; 82803; 82945; 82947; 83516; 83520; 83615; 83690; 83735; 84100; 84132; 84156; 84157; 84165; 84166; 84300; 84550; 85014; 85018; 85025; 85610; 86038; 86256; 86334; 86335; 86850; 86900; 86901; 86923; 87522; 89051; 93005; 93010; 96365; 99285-25; G0103; J0696; J0881; J1815; J1940; J2060; J2354; J2405; J2550; J7030; J7799; P9016; P9046

== ENCOUNTER 2019-03-17 13:21 | Day surgery (SDC) | payer OTHER ==
[~2019-03-17 13:21] MED LIST changes: +ACET325 PO; +ATEN25 PO; +ATORVASTATIN CA40 MG PO; +DILTIAZEM 24HR120 M1 PO; +Hygroton50 MG PO; +LACT10SY PO; +LOPE2C PO; +MIDO5 PO; +NEOM500 PO; +NICOTINE1 EACH TOP; +ONDA4ODT PO; +PROM12.5S PR; +Pedi-Dri 100,0060 GM TOP; +SILD50TA PO; +Spironolactone25 MG PO; +TORS10 PO; +TRAZ50 PO; +Vitamin D2000 UNIT PO
[2019-04-02] MEDS ORDERED: Kristalose20 GM PO (12:13)
[2019-04-02] MEDS ORDERED: AMLO5 PO (14:54)
[2019-04-02] MEDS ORDERED: Glucose4 GM PO (14:55)
[2019-04-02] MEDS ORDERED: VITAMIN D31000 UNI1 PO (14:55)
[2019-04-02] MEDS ORDERED: HYDHCL25 PO (14:56)
[2019-04-02] MEDS ORDERED: Anti-Diarrheal2 MG PO (14:57)
[2019-04-02] MEDS ORDERED: OMEPRAZOLE20 MG PO (14:58)
[2019-04-02] MEDS ORDERED: RIFA550T2 PO (14:58)
[2019-04-02] MEDS ORDERED: MELATONIN5 M1 PO (14:58)
[2019-04-02] MEDS ORDERED: SPIR25 PO (14:59)
[2019-04-02] MEDS ORDERED: ZOLOFT25 MG PO (14:59)
[2019-04-02] MEDS ORDERED: NICOTINE LOZENGE2 MG MM (16:41)
[2019-04-03] MEDS ORDERED: LACT10SY PO (11:07)
[2019-04-25] MEDS ORDERED: OXYC5 PO (14:01)
[2019-04-25] MEDS ORDERED: HYDRA25 PO (14:02)
[2019-04-25] MEDS ORDERED: AMLO5 PO (14:02)
[2019-04-25] MEDS ORDERED: MIDODRINE PO (14:05)
[2019-04-25] MEDS ORDERED: TRAZ50 PO (14:06)
== END 2019-03-17 23:02 | disposition home or self-care (01) ==
LOC: US 13:21
DX: R18.8 Other ascites (principal)
CPT/HCPCS: 49083

== ENCOUNTER 2019-03-25 08:46 | Day surgery (SDC) | payer OTHER ==
[2019-04-02] MEDS ORDERED: Kristalose20 GM PO (12:13)
[2019-04-02] MEDS ORDERED: AMLO5 PO (14:54)
[2019-04-02] MEDS ORDERED: VITAMIN D31000 UNI1 PO (14:55)
[2019-04-02] MEDS ORDERED: Glucose4 GM PO (14:55)
[2019-04-02] MEDS ORDERED: HYDHCL25 PO (14:56)
[2019-04-02] MEDS ORDERED: Anti-Diarrheal2 MG PO (14:57)
[2019-04-02] MEDS ORDERED: RIFA550T2 PO (14:58)
[2019-04-02] MEDS ORDERED: OMEPRAZOLE20 MG PO (14:58)
[2019-04-02] MEDS ORDERED: MELATONIN5 M1 PO (14:58)
[2019-04-02] MEDS ORDERED: SPIR25 PO (14:59)
[2019-04-02] MEDS ORDERED: ZOLOFT25 MG PO (14:59)
[2019-04-02] MEDS ORDERED: NICOTINE LOZENGE2 MG MM (16:41)
[2019-04-03] MEDS ORDERED: LACT10SY PO (11:07)
[2019-04-25] MEDS ORDERED: OXYC5 PO (14:01)
[2019-04-25] MEDS ORDERED: HYDRA25 PO (14:02)
[2019-04-25] MEDS ORDERED: AMLO5 PO (14:02)
[2019-04-25] MEDS ORDERED: MIDODRINE PO (14:05)
[2019-04-25] MEDS ORDERED: TRAZ50 PO (14:06)
== END 2019-03-25 22:51 | disposition home or self-care (01) ==
LOC: US 08:46
DX: R18.8 Other ascites (principal)
CPT/HCPCS: 49083

== ENCOUNTER 2019-03-31 15:35 | Day surgery (SDC) | payer OTHER ==
[2019-04-01] MEDS ORDERED: TRAZ50 PO (18:04)
[2019-04-01] MEDS ORDERED: BENADRYL25 MG PO (18:06)
[2019-04-02] MEDS ORDERED: Kristalose20 GM PO (12:13)
[2019-04-02] MEDS ORDERED: AMLO5 PO (14:54)
[2019-04-02] MEDS ORDERED: Glucose4 GM PO (14:55)
[2019-04-02] MEDS ORDERED: VITAMIN D31000 UNI1 PO (14:55)
[2019-04-02] MEDS ORDERED: HYDHCL25 PO (14:56)
[2019-04-02] MEDS ORDERED: Anti-Diarrheal2 MG PO (14:57)
[2019-04-02] MEDS ORDERED: OMEPRAZOLE20 MG PO (14:58)
[2019-04-02] MEDS ORDERED: MELATONIN5 M1 PO (14:58)
[2019-04-02] MEDS ORDERED: RIFA550T2 PO (14:58)
[2019-04-02] MEDS ORDERED: SPIR25 PO (14:59)
[2019-04-02] MEDS ORDERED: ZOLOFT25 MG PO (14:59)
[2019-04-02] MEDS ORDERED: NICOTINE LOZENGE2 MG MM (16:41)
[2019-04-03] MEDS ORDERED: LACT10SY PO (11:07)
[2019-04-25] MEDS ORDERED: OXYC5 PO (14:01)
[2019-04-25] MEDS ORDERED: HYDRA25 PO (14:02)
[2019-04-25] MEDS ORDERED: AMLO5 PO (14:02)
[2019-04-25] MEDS ORDERED: MIDODRINE PO (14:05)
[2019-04-25] MEDS ORDERED: TRAZ50 PO (14:06)
== END 2019-03-31 17:30 | disposition home or self-care (01) ==
LOC: ATC 15:35
DX: K70.31 Alcoholic cirrhosis of liver with ascites (principal); K70.11 Alcoholic hepatitis with ascites; E11.22 Type 2 diabetes mellitus with diabetic chronic kidney disease; I12.9 Hypertensive chronic kidney disease with stage 1 through stage 4 chronic kidney disease, or unspecified chronic kidney disease; N18.9 Chronic kidney disease, unspecified; D63.1 Anemia in chronic kidney disease; Z79.899 Other long term (current) drug therapy; Z87.891 Personal history of nicotine dependence
CPT/HCPCS: 49083; 96365; P9046

== ENCOUNTER 2019-04-01 16:34 | Emergency (ER) | payer OTHER ==
[~2019-04-01] VITALS: Ht 182.9 cm; Wt 82.5 kg
[2019-04-01 17:45] LABS: BASOPHILS ABSOLUTE AUTO 0.03 K/mm3 (0.00-0.23); BASOPHILS PERCENT AUTO 1 % (0-2); EOSINOPHILS ABSOLUTE AUTO 0.28 K/mm3 (0.00-0.68); EOSINOPHILS PERCENT AUTO 8 % (0-6); Hematocrit 31.2 % (37.0-53.0); Hemoglobin 9.9 g/dL (13.5-17.5); IMMATURE GRAN ABSOLUTE AUTO 0.01 K/mm3 (0.00-0.10); IMMATURE GRAN PERCENT AUTO 0 % (0-1); LYMPHOCYTES ABSOLUTE AUTO 0.34 K/mm3 (0.84-5.20); LYMPHOCYTES PERCENT AUTO 9 % (21-46); MONOCYTES ABSOLUTE AUTO 0.28 K/mm3 (0.16-1.47); MONOCYTES PERCENT AUTO 8 % (4-13); Mean Corpuscular HGB 30.8 pg (26.0-34.0); Mean Corpuscular HGB Conc 31.7 g/dL (31.5-36.5); Mean Corpuscular Volume 97 fL (80-100); Mean Platelet Volume 11.4 fL (9.1-12.4); NEUTROPHILS ABSOLUTE AUTO 2.67 K/mm3 (1.96-9.15); NEUTROPHILS PERCENT AUTO 74 % (41-73); Platelet Count 114 K/mm3 (150-400); RDW Coefficient Variation 17.2 % (11.7-14.2); RDW Standard Deviation 61.5 fL (35.1-46.3); Red Blood Cell Count 3.21 M/mm3 (4.30-5.90); White Blood Cell Count 3.61 K/mm3 (4.00-11.30)
[2019-04-01 18:03] LABS: Albumin, Blood 3.2 g/dL (3.4-5.0); Albumin/Globulin Ratio 0.5 (0.8-1.8); Bilirubin, Total 1.2 mg/dL (0.1-1.0); Calcium, Blood 8.5 mg/dL (8.5-10.1); Creatinine, Blood 3.84 mg/dL (0.60-1.20); Potassium, Blood 4.5 mmol/L (3.5-5.5); Total Protein, Blood 9.2 g/dL (6.4-8.2)
[2019-04-01] MEDS ORDERED: TRAZ50 PO (18:04)
[2019-04-01] MEDS ORDERED: BENADRYL25 MG PO (18:06)
[2019-04-02] MEDS ORDERED: Kristalose20 GM PO (12:13)
[2019-04-02] MEDS ORDERED: AMLO5 PO (14:54)
[2019-04-02] MEDS ORDERED: Glucose4 GM PO (14:55)
[2019-04-02] MEDS ORDERED: VITAMIN D31000 UNI1 PO (14:55)
[2019-04-02] MEDS ORDERED: HYDHCL25 PO (14:56)
[2019-04-02] MEDS ORDERED: Anti-Diarrheal2 MG PO (14:57)
[2019-04-02] MEDS ORDERED: MELATONIN5 M1 PO (14:58)
[2019-04-02] MEDS ORDERED: OMEPRAZOLE20 MG PO (14:58)
[2019-04-02] MEDS ORDERED: RIFA550T2 PO (14:58)
[2019-04-02] MEDS ORDERED: ZOLOFT25 MG PO (14:59)
[2019-04-02] MEDS ORDERED: SPIR25 PO (14:59)
[2019-04-02] MEDS ORDERED: NICOTINE LOZENGE2 MG MM (16:41)
[2019-04-03] MEDS ORDERED: LACT10SY PO (11:07)
[2019-04-25] MEDS ORDERED: OXYC5 PO (14:01)
[2019-04-25] MEDS ORDERED: HYDRA25 PO (14:02)
[2019-04-25] MEDS ORDERED: AMLO5 PO (14:02)
[2019-04-25] MEDS ORDERED: MIDODRINE PO (14:05)
[2019-04-25] MEDS ORDERED: TRAZ50 PO (14:06)
== END 2019-04-01 18:22 | disposition home or self-care (01) ==
LOC: ER 16:34
PROVIDERS: Emergency Medicine
DX: E72.20 Disorder of urea cycle metabolism, unspecified (principal); I12.9 Hypertensive chronic kidney disease with stage 1 through stage 4 chronic kidney disease, or unspecified chronic kidney disease; E11.9 Type 2 diabetes mellitus without complications; N18.9 Chronic kidney disease, unspecified; F17.210 Nicotine dependence, cigarettes, uncomplicated; Z99.2 Dependence on renal dialysis
CPT/HCPCS: 36415; 80053; 82140; 85025; 93005; 93010; 99283-25

== ENCOUNTER 2019-04-05 11:08 | Inpatient (IN) | payer OTHER ==
[~2019-04-05] VITALS: Ht 182.9 cm; Wt 84.4 kg
[~2019-04-05 11:08] MED LIST changes: +AMLO5 PO; +Anti-Diarrheal2 MG PO; +BENADRYL25 MG PO; +Glucose4 GM PO; +HYDHCL25 PO; +Kristalose20 GM PO; +MELATONIN5 M1 PO; +NICOTINE LOZENGE2 MG MM; +OMEPRAZOLE20 MG PO; +RIFA550T2 PO; +SPIR25 PO; +VITAMIN D31000 UNI1 PO; +ZOLOFT25 MG PO
[2019-04-05 11:45] LABS: BASOPHILS ABSOLUTE AUTO 0.05 K/mm3 (0.00-0.23); BASOPHILS PERCENT AUTO 1 % (0-2); EOSINOPHILS ABSOLUTE AUTO 0.48 K/mm3 (0.00-0.68); EOSINOPHILS PERCENT AUTO 8 % (0-6); Hematocrit 25.7 % (37.0-53.0); Hemoglobin 8.1 g/dL (13.5-17.5); IMMATURE GRAN ABSOLUTE AUTO 0.03 K/mm3 (0.00-0.10); IMMATURE GRAN PERCENT AUTO 1 % (0-1); LYMPHOCYTES ABSOLUTE AUTO 0.58 K/mm3 (0.84-5.20); LYMPHOCYTES PERCENT AUTO 9 % (21-46); MONOCYTES ABSOLUTE AUTO 0.66 K/mm3 (0.16-1.47); MONOCYTES PERCENT AUTO 10 % (4-13); Mean Corpuscular HGB 31.5 pg (26.0-34.0); Mean Corpuscular HGB Conc 31.5 g/dL (31.5-36.5); Mean Corpuscular Volume 100 fL (80-100); Mean Platelet Volume 11.4 fL (9.1-12.4); NEUTROPHILS ABSOLUTE AUTO 4.57 K/mm3 (1.96-9.15); NEUTROPHILS PERCENT AUTO 72 % (41-73); Platelet Count 148 K/mm3 (150-400); RDW Standard Deviation 61.9 fL (35.1-46.3); Red Blood Cell Count 2.57 M/mm3 (4.30-5.90); White Blood Cell Count 6.37 K/mm3 (4.00-11.30)
[2019-04-05 12:01] LABS: International Normalized Ratio 1.31; Prothrombin Time Results 13.8 Sec (9.7-11.5)
[2019-04-05 12:06] LABS: Albumin, Blood 2.4 g/dL (3.4-5.0); Albumin/Globulin Ratio 0.5 (0.8-1.8); Bilirubin, Total 1.1 mg/dL (0.1-1.0); Bun/Creatinine Ratio 18.4 (12.0-20.0); Calcium, Blood 8.1 mg/dL (8.5-10.1); Creatinine, Blood 4.03 mg/dL (0.60-1.20); Globulin, Blood 4.9 g/dL (2.2-4.0); Potassium, Blood 4.4 mmol/L (3.5-5.5); Total Protein, Blood 7.3 g/dL (6.4-8.2)
[2019-04-05 13:16] LABS: PCO2 Arterial 26.2 mmHg (35-45); PO2 Arterial 99.3 mmHg (80-100)
[2019-04-05 13:17] LABS: pH Blood Arterial 7.25 (7.35-7.45)
[2019-04-05] MEDS ORDERED: ATORVASTATIN CA40 MG PO (13:34)
[2019-04-05] MEDS ORDERED: ATEN25 PO (13:34)
[2019-04-05] MEDS ORDERED: DILT120 PO (13:35)
[2019-04-05] MEDS ORDERED: MIDO5 PO (13:36)
[2019-04-05] MEDS ORDERED: TORS10 PO (13:41)
[2019-04-05 18:15] LABS: Albumin, Blood 2.4 g/dL (3.4-5.0); Anion Gap 11 mmol/L (6-16); Blood Urea Nitrogen 77 mg/dL (8-24); Bun/Creatinine Ratio 17.6 (12.0-20.0); CO2, Blood 13 mmol/L (21-32); Calcium, Blood 8.2 mg/dL (8.5-10.1); Chloride, Blood 114 mmol/L (98-108); Creatinine, Blood 4.37 mg/dL (0.60-1.20); Glomerular Filtration Rate 15 (60-); Glucose, Blood 137 mg/dL (70-99); Potassium, Blood 5.2 mmol/L (3.5-5.5); Sodium, Blood 138 mmol/L (136-145)
--- NOTE | 2019-04-05 19:26 | NUR ---
TRANSFER TO ICU / DR LEE: REPORT RECEIVED FROM LE Espinoza RN IN PCU. PT ARRIVED TO ICU-11 AT APPROX 1830. ON ARRIVAL THE PT IS A&O, PLEASANT & COOPERATIVE. TX TO ICU BED W/ SLIDER & 4 STAFF ASSIST. VSS. NO CURRENT C/O NAUSEA OR ABD PAIN. DR LEE AT BEDSIDE. HE WOULD LIKE DIAGNOSITIC PARACENTESIS TO BE PERFORMED W/ ASCITES FLUID TO R/O PERITONITIS, ORDERS PLACED & HARD COPY OF ORDERS FAXED TO LAB PER PROVIDER REQUEST. RADIOLOGY HAS BEEN NOTIFIED OF STAT ORDERS & IS CURRENTLY AT BEDSIDE COMPLETING PROCEDURE. PLAN IS FOR EGD TO BE COMPLETED AFTER PARACENTESIS DONE. PROTONIX IVP COMPLETED & DRIP INITIATED PER ORDERS. REPORT HAS BEEN GIVENT TO GINA Lugo RN TO ASSUME CARE.
--- NOTE | 2019-04-05 19:43 | NUR ---
LATE ENTRY - ADMIT NOTE/SHIFT ASSESSMENT/TRANSFER NOTE RECEIVED REPORT FROM GISSEL JUNIOR IN ED. PER REPORT PT HAS HAD TWO EPISODE OF EMESIS, ONE AT HOME AND ONE IN ED, APPROX 150cc OUT. PT TO ROOM AT 1515, TRANSFERED TO BED WITH SBA. PT ORIENTED TO ROOM AND CALL LIGHT. EDUCATED PT ON FALL RISK AND USE OF CALL LIKE. PT A&Ox4, CALM AND COOPERATIVE WITH CARE. PT DENIES USE OF ASPIRIN AND OTHER BLOOD THINS, STATES THIS STARTED LAST NOC, HE HAD ONE EPISODE OF EMESIS, NO BLOOD NOTED LAST NIGHT, THEN HE HAD ONCE EPISODE OF EMESIS THIS AM AT HOME AND EPISODE IN ED. VSS. PT REPORTS "SLIGHT" LIGHTHEADED/DIZZINESS. DENIES SOB, CHEST PAIN/PRESSURE, NAUSEA AND PAIN DURING SHIFT. PT RECEIVING IV PUSH OF PROTONIX AND IV GTT SANDOSTATIN. EX PASCUAL AT BEDSIDE THIS EVENING, WHO IS SAND WHEELER AT HOME. AT APPROX 1710 PT HAD LOOSE BM, BROWN/KEISHA IN COLOR, W/ LIN RED BLOOD IN TOILET WATER. VSS. NOTIFIED DR LEE, NEW ORDERS TO TRANSFER PT TO ICU FOR CLOSER MONITORING. REPORT GIVEN TO GISSEL FRAZIER IN ICU. PT TRANSFERED TO ICU 11 AT 1826. FAXED REQUEST TO [facility] FOR MEDICAL RECORDS.
--- NOTE | 2019-04-05 20:00 | NUR ---
ASSUMPTION OF CARE ASSUMED CARE OF PT @ 1900. PT ALERT AND ORIENTED TO MONTH, EVENT, SELF, FOLLOWING DIRECTIONS. DR LEE AT BEDSIDE TO OBTAIN PARACENTESIS SAMPLE, PT TOLERATING WELL. LS CLEAR, DIM IN THE BASES, O2 SATURATIONS MAINTAINED ABOVE 95% ON RA. MONITOR SHOWS SINUS RHYTHM, HR 80'S, MILDLY HYPERTENSIVE WITH SBP 130'S-140'S. MODERATE ABDOMINAL DISTENTION, HX OF CIRRHOSIS. PERIPHERAL IV X2, INFUSING PROTONIX AND SANDOSTATIN GTT. PT DENIES ANY PAIN/DISCOMFORT AT THIS TIME.
[2019-04-05 20:25] LABS: Automated BF WBC Count 0.076 K/mm3 (0-999); Body Fluid WBC Count 76 /mm3 (0-999)
[2019-04-05 20:32] LABS: PCO2 Arterial 26.4 mmHg (35-45); PO2 Arterial 98.2 mmHg (80-100)
[2019-04-05 20:33] LABS: pH Blood Arterial 7.25 (7.35-7.45)
[2019-04-05 20:52] LABS: Albumin, Body Fluid 0.3 g/dL; Protein, Body Fluid 0.7 g/dL
[2019-04-05 20:53] LABS: Appearance, Body Fluid Clear (Clear); Color, Body Fluid L Yellow (None-Yellow); Total Cell Count, Body Fluid 100
--- NOTE | 2019-04-05 20:53 | NUR ---
DAY SURGERY CREW READY OUTSIDE ICU 11 WAITING FOR PATIENT TO FINISH USING COMMODE AND THEN WILL SET UP.
[2019-04-05 20:58] LABS: RBC Count, Body Fluid 826 /mm3 (0-0)
--- NOTE | 2019-04-05 21:00 | NUR ---
OR STAFF TO ROOM, NOTIFED DR LEE OF PTS LIQUID MAROON STOOL (APPROX 110ml)
--- NOTE | 2019-04-05 21:19 | NUR ---
History, Chart, Medications and Allergies reviewed before start of procedure. Patient confirms NPO status and agrees with scheduled surgery.
--- NOTE | 2019-04-05 21:20 | NUR ---
04/05/192119 Latonia eBnnett A PATIENT DETERMINED TO BE ASA APPROPRIATE FOR PROPOFOL SEDATION PRIOR TO START OF PROCEDURE BY DR. LEE. 3-LEAD EKG REVIEWED WITH PHYSICIAN PRIOR TO START OF PROCEDURE. MONITOR INTACT WITH CONTINUOUS PULSE OXIMETRY AND INTERMITTENT BP.
[2019-04-05 21:45] LABS: Source, Urine Clean Catch
[2019-04-05 21:48] LABS: Appearance, Urine Clear (Clear); Bilirubin, Urine Neg (Neg); Blood, Urine Neg (Neg); Color, Urine Amber (P-Yellow); Glucose Qualitative, Urine Neg (Neg); Ketones, Urine Neg (Neg); Leukocyte Esterase, Urine 1+ (Neg); Nitrite, Urine Neg (Neg); Protein, Urine 2+ (Neg); Specific Gravity, Urine 1.025 (1.003-1.022); Urobilinogen, Urine NORM (Normal)
[2019-04-05 21:57] LABS: Bacteria Many /hpf; Hyaline Casts 0-2 /lpf (0-2); Red Blood Cells, Urine 0-2 /hpf (0-2); Squamous Epithelial Cells Few /hpf (Few)
--- NOTE | 2019-04-05 22:39 | NUR ---
PT HAS BEEN BEING TAKEN CARE OF BY EX PASCUAL. I CONTACTED HER TO UPDATE HER ON THE PT'S STATUS AND TO LET HER KNOW THAT HE HAS BEEN INTUBATED. EXPLAINED WHAT WAS FOUND DURING THE EGD AND THAT HE IS NEEDING TO BE SHIPPED FOR A POSSIBLE TIPS PROCEDURE.
[2019-04-05 23:16] LABS: Source, Urine Catheter
[2019-04-05 23:18] LABS: Appearance, Urine Clear (Clear); Bilirubin, Urine Neg (Neg); Blood, Urine 3+ (Neg); Color, Urine Amber (P-Yellow); Glucose Qualitative, Urine Neg (Neg); Ketones, Urine 1+ (Neg); Leukocyte Esterase, Urine Neg (Neg); Nitrite, Urine Neg (Neg); Protein, Urine 2+ (Neg); Specific Gravity, Urine 1.025 (1.003-1.022); Urobilinogen, Urine NORM (Normal)
[2019-04-05 23:25] LABS: Amorphous Mod (0-Heavy); Bacteria Few /hpf; Mucus Light (0-Heavy); Red Blood Cells, Urine 0-2 /hpf (0-2); Squamous Epithelial Cells Not Seen /hpf (Few); White Blood Cells, Urine 0-2 /hpf (0-5)
--- NOTE | 2019-04-06 | NUR ---
BEDSIDE PROCEDURE/INTUBATION EGD BEGAN @ 2123 WITH DAY SURGERY STAFF AND DR LEE (SEE SURGICAL NOTES), ACTIVE BLEEDING VARICE FOUND, DR LEE RECOMMENDS TRANSFER TO HIGHER LEVEL OF CARE, NO ACCEPTING HOSPITAL AT THIS TIME. PT VOMITED BLOODY EMESIS POST PROCEDURE. CALL TO ED FOR RSI, DR FINE AND ED RN TO BEDSIDE FOR INTUBATION PROCEDURE. PT INTUBATED @ 2208 WITH 7.5 ETT, 24 @ THE LIP, VENT SET TO AC 16/450/5/21%, FIO2 LATER INCREASED TO 30%. PER DR LEE, NO OG PLACEMENT AT THIS TIME (BLEEDING ESOPHOGEAL VARICE). ORDER TO TRANSFUSE 2 UNITS PRBC AND 2 UNITS FFP. ADD ON LAB FOR AFP, DR LEE NOTIFIED OF RESULT.
--- NOTE | 2019-04-06 01:36 | NUR ---
CALL PLACED TO DR LEE REGARDING PTS HIGH BP, ORDER FOR 10mg LABETALOL IV x1.
[2019-04-06 05:16] LABS: BASOPHILS ABSOLUTE AUTO 0.02 K/mm3 (0.00-0.23); BASOPHILS PERCENT AUTO 0 % (0-2); EOSINOPHILS ABSOLUTE AUTO 0.16 K/mm3 (0.00-0.68); EOSINOPHILS PERCENT AUTO 2 % (0-6); Hematocrit 23.6 % (37.0-53.0); Hemoglobin 7.6 g/dL (13.5-17.5); IMMATURE GRAN ABSOLUTE AUTO 0.03 K/mm3 (0.00-0.10); IMMATURE GRAN PERCENT AUTO 0 % (0-1); LYMPHOCYTES PERCENT AUTO 6 % (21-46); MONOCYTES ABSOLUTE AUTO 0.74 K/mm3 (0.16-1.47); MONOCYTES PERCENT AUTO 11 % (4-13); Mean Corpuscular HGB 31.1 pg (26.0-34.0); Mean Corpuscular HGB Conc 32.2 g/dL (31.5-36.5); Mean Platelet Volume 11.8 fL (9.1-12.4); NEUTROPHILS ABSOLUTE AUTO 5.67 K/mm3 (1.96-9.15); NEUTROPHILS PERCENT AUTO 81 % (41-73); Platelet Count 74 K/mm3 (150-400); RDW Coefficient Variation 16.4 % (11.7-14.2); RDW Standard Deviation 58.5 fL (35.1-46.3); Red Blood Cell Count 2.44 M/mm3 (4.30-5.90); White Blood Cell Count 7.02 K/mm3 (4.00-11.30)
[2019-04-06 05:23] LABS: Mean Corpuscular Volume 97 fL (80-100)
[2019-04-06 05:27] LABS: International Normalized Ratio 1.24; Prothrombin Time Results 13.1 Sec (9.7-11.5)
[2019-04-06 05:33] LABS: Albumin, Blood 2.3 g/dL (3.4-5.0); Albumin/Globulin Ratio 0.5 (0.8-1.8); Bilirubin, Total 2.2 mg/dL (0.1-1.0); Bun/Creatinine Ratio 17.4 (12.0-20.0); Calcium, Blood 8.2 mg/dL (8.5-10.1); Creatinine, Blood 4.48 mg/dL (0.60-1.20); Globulin, Blood 4.4 g/dL (2.2-4.0); Magnesium, Blood 2.2 mg/dL (1.6-2.4); Phosphorus, Blood 7.2 mg/dL (2.5-4.9); Potassium, Blood 5.4 mmol/L (3.5-5.5); Total Protein, Blood 6.7 g/dL (6.4-8.2)
--- NOTE | 2019-04-06 06:37 | NUR ---
SHIFT SUMMARY PT INTUBATED THIS SHIFT (SEE NURSES NOTE), VENT SET TO AC 16/450/5/21%, LS CLEAR TO COARSE IN RAMU AND CLEAR-DIM IN REST. SOME THIN BLOOD TINGED SECRETIONS FROM ETT. PT BECAME TACHYCARDIC POST INTUBATION AND VERY HYPERTENSIVE, PROPOFOL INITIATED WITH SOME IMPROVEMENT IN HR AND BP, ONE TIME DOSE OF LABETALOL ADMINISTERED, CURRENT HR 60'S-70'S, SBP 120'S-130'S, MAPS 80'S. MODERATE ABDOMINAL DISTENTION, HYPOACTIVE BOWEL TONES, ONE LIQUID MAROON STOOL AT BEGINNING OF SHIFT, NO OG PLACEMENT DUE TO ESOPHAGEAL VARICES- ACTIVELY BLEEDING. PT RECIEVED 2 UNITS OF PRBC AND 2 UNITS OF FFP THIS SHIFT, MORNING H&H RESULTS CALLED TO DR LEE. CASTORENA PLACED THIS SHIFT, VERY LOW URINE OUTPUT, 54ml FOR ENTIRE SHIFT. PERIPHERAL IV x4 INFUSING PROPOFOL, SANDOSTATIN, PROTONIX, AND BICARB GTT. DR AMARO IN TO SEE PT THIS AM, SPOKE WITH PTS EX- WHOM PT IS CURRENTLY LIVING WITH, EX- STS THERE IS NO ADVANCED DIRECTIVE OR POLST AND THAT PT WOULD WANT FULL MEASURES, EX- STS OKAY TO PLACE DIALYSIS CATHETER AND TO BEGIN DIALYSIS.
--- NOTE | 2019-04-06 08:38 | NUR ---
PT SEDATED ON 30MCG PROPOFOL FOR MECH VENT. PT AROUSES TO LIGHT TOUCH AND NODS HEAD APPROPROPRIATELY TO QUESTIONS. PT COUGHS AND GAG'S OFTEN ON ASSESSMENT. LARGE AMT OF PINK TINGED SPUTUM SUCTIONED FROM ETT. PROPOFOL INCREASED TO 50MCG TO HELP PREVENT GAGING AND COUGHING; RATIONAL TO PREVENT VARICES FROM RE-BLEEDING. PT NODS HEAD YES TO PAIN; WILL ASK FOR PRN PAIN MEDS. ALL PO MEDS HELD PT HAS NO OGT 2ND TO ESOPHAGEAL VARICES. VSS;NO SIGNS OF ACTIVE BLEED. DR FARRAR CONSULTED FOR CRITICAL CARE/VENT/HD CATH PLACEMENT. PT SCHEDULED TO HAVE HD TODAY W ONE UNIT OF PRBC. PT'S BROTHER IN [place] THIS AM. DR ALVA IN WELL. SANDOSTATIN/PROTONIX GTT RUNNING, BICARB GTT W 3AMPS AT 75CC/HR.
[2019-04-06 09:03] LABS: Hematocrit 20.9 % (37.0-53.0); Hemoglobin 6.8 g/dL (13.5-17.5)
--- NOTE | 2019-04-06 10:35 | NUR ---
PT'S XWIFE AND CURRENT GRANTS MANAGER IN TO SEE PT. UPDATE GIVEN. DR [facility]. XRAY OBTAINED. 1UNITS RPBC TO BE GIVEN. FENT 25MCG GIVEN DURING PROCEDURE. HD RN NOTIFIED.
[2019-04-06 11:13] LABS: Base Excess Venous -10.4 mmol/L; Bicarbonate Venous 16.3 mmol/L (24.0-30.0); PCO2 Venous 34.6 mmHg (38-42); PO2 Venous 34.4 mmHg (38-42); pH Blood Venous 7.28 (7.34-7.37)
[2019-04-06 15:21] LABS: Hematocrit 22.3 % (37.0-53.0); Hemoglobin 7.8 g/dL (13.5-17.5)
--- NOTE | 2019-04-06 15:45 | NUR ---
HD COMPLETE; WASH ONLY. ONE UNIT OF PRBC'S INFUSED W/O ANY ADVERSE REACTIONS. DR FARRAR WANTED A TOTAL OF ONE UNIT, NOT TWO UNITS TO BE GIVEN AT THIS POINT. (PREM HAD ORDERED ONE W HD, AND LENI HAD ORDERED ONE THIS AM). PT TOLERATED HD FAIRLY WELL; SOME TACHYCARDIA, SOME MILD HYPOTENSION W MAP 58-65. LIVER U/S COMPLETED. PT MAY BE TRANSFERED DEPENDING ON RESULTS TO [facility]. LACTIC ACID IMPROVED. DR FARRAR NOTIFIED OF THIS AND RECENT H&H. BICARB GTT DC'D.
--- NOTE | 2019-04-06 16:55 | NUR ---
Patient is on a ventilator, family not present. Patient's nurse to discuss a student working with him tomorrow when she talks to later this evening.
[2019-04-06 17:11] LABS: Hematocrit 23.9 % (37.0-53.0); Hemoglobin 8.2 g/dL (13.5-17.5)
--- NOTE | 2019-04-06 17:22 | NUR ---
PT HYPOTENSIVE W MAP<65, HR 120-136. NO NOTED BLOOD FROM RECTUM OR MOUTH. DR FARRAR CALLED; LEVOPHED STARTED AT 5MCG WITH GOOD EFFECT. STAT H&H SENT. DL [facility] PASTORAL CARE AT BEDSIDE COUNSELING PT'S XWIFE AND CLOSE FRIEND.
--- NOTE | 2019-04-06 18:39 | NUR ---
LABS CALLED INTO DR FARRAR. H&H Q 6HRS. PT REMAINS ON LEVOPHED AT 5MCG. AWAITING CHEM RESULTS TO CALL INTO DR AMARO. PROPOFOL REMAINS AT 50MCG, FENT ORDERED PRN FOR PAIN. SANDOSTATIN AND PROTONIX GTT INFUSING.
--- NOTE | 2019-04-06 18:48 | NUR ---
Inital spiritual care note: Spoke at length with Juan' ex- Angelika and pt's friend. Pt is non-muslim/spiritual, but Angelika is appreciative of spiritual direction and prayer. I provided theraputic listening and gentle career guidance counselor to good effect. Angelika appears to grasp Juan' dire prognosis, but is hopeful for more quality time. Family friend seems to be a good support. I will conintue to follow pt/family.
[2019-04-06 19:01] LABS: Albumin, Blood 2.1 g/dL (3.4-5.0); Albumin/Globulin Ratio 0.5 (0.8-1.8); Bilirubin, Total 1.8 mg/dL (0.1-1.0); Bun/Creatinine Ratio 15.3 (12.0-20.0); Calcium, Blood 7.7 mg/dL (8.5-10.1); Creatinine, Blood 3.33 mg/dL (0.60-1.20); Globulin, Blood 4.1 g/dL (2.2-4.0); Potassium, Blood 3.8 mmol/L (3.5-5.5); Total Protein, Blood 6.2 g/dL (6.4-8.2)
--- NOTE | 2019-04-06 19:14 | NUR ---
LABS CALLED INTO DR AMARO; NO NEW ORDERS. REPORT GIVEN TO GINA CHAUHAN, GTT'S REVIEWED.
--- NOTE | 2019-04-06 20:00 | NUR ---
ASSUMPTION OF CARE ASSUMED CARE OF PT @ 1900. PT INTUBATED AND SEDATED, VENT SET TO AC 20/450/5/21%, NO SECRETIONS FROM ETT AT THIS TIME, COUGH PRESENT WITH SUCTIONING. MONITOR SHOWS A SINUS RHYTHM WITH PAC'S, HR 70'S, BP MAPS 70'S-80'S, LEVO INFUSING. SKIN IS WARM WITH COOL EXTREMETIES. CASTORENA IN PLACE DRAINING DARK YELLOW URINE. PLANTAR REFLEXES PRESENT. PERIPHERAL IV x4 INFUSING PROTONIX, SANDOSTATIN, PROPOFOL AND TKO. CENTRAL LINE TO RIJ INFUSING LEVO. SEE FLOWSHEET FOR GTT RATES.
[2019-04-07 01:25] LABS: Hematocrit 25.7 % (37.0-53.0); Hemoglobin 8.9 g/dL (13.5-17.5)
[2019-04-07 04:10] LABS: Bicarbonate Venous 22.9 mmol/L (24.0-30.0); PCO2 Venous 31.9 mmHg (38-42); PO2 Venous 51.8 mmHg (38-42); pH Blood Venous 7.45 (7.34-7.37)
[2019-04-07 04:31] LABS: Anion Gap 9 mmol/L (6-16); Blood Urea Nitrogen 58 mg/dL (8-24); Bun/Creatinine Ratio 14.8 (12.0-20.0); CO2, Blood 21 mmol/L (21-32); Calcium, Blood 7.5 mg/dL (8.5-10.1); Chloride, Blood 110 mmol/L (98-108); Creatinine, Blood 3.91 mg/dL (0.60-1.20); Glomerular Filtration Rate 17 (60-); Glucose, Blood 108 mg/dL (70-99); Magnesium, Blood 1.9 mg/dL (1.6-2.4); Phosphorus, Blood 4.4 mg/dL (2.5-4.9); Potassium, Blood 4.1 mmol/L (3.5-5.5); Sodium, Blood 140 mmol/L (136-145)
--- NOTE | 2019-04-07 06:08 | NUR ---
DR AMARO IN TO SEE PT, ORDERS TO TRANSFUSE 1 UNIT PRBC AND ALBUMIN 25G IV 1-2 TIMES, BOTH DURING DIALYSIS.
--- NOTE | 2019-04-07 06:29 | NUR ---
SHIFT SUMMARY NO ACUTE CHANGES DURING NIGHT, PT REMAINS INTUBATED AND SEDATED, VENT SET TO AC 20/450/5/21%, O2 SATURATIONS MAINTAINED ABOVE 95%, LS CLEAR, DIM IN THE BASES. MONITOR SHOWS SINUS RHYTHM WITH PAC'S, HR 70'S-80'S, BP MAPS MAINTAINED ABOVE 65, LEVO TITRATED TO 3mcg (SEE FLOWSHEET). PT RESPONDS TO NOXIOUS STIMULI, PLANTAR REFLEXES PRESENT.
[2019-04-07 07:31] LABS: Hematocrit 26.7 % (37.0-53.0)
--- NOTE | 2019-04-07 07:56 | NUR ---
PT SEDATED ON 50MCG PROPOFOL FOR MECH VENT. PT GRIMACES W NOXIOUS STIMULI. WILL TITRATE PROPFOL DOWN TOLERATED. LEVOPHED AT 3MCG; DECREASED TO 1MCG. H&H STABLE. NO SIGNS OF ACTIVE BLEEDING. PROTONIX AND SANDOSTATIN GTT INFUSING. PT MAY BE EXTUBATED TODAY.
--- NOTE | 2019-04-07 11:12 | NUR ---
DR FARRAR AT BEDSIDE. PT PLACED ON PS 5/5 FOR WEANING. PROPOFOL PLACED ON STANDBY.
--- NOTE | 2019-04-07 12:07 | NUR ---
pt following some simple commands, remains very sedated, can open eyes to sound. pt's xwife at bedside. levophed placed on standby. pt tolerating weaning trial
--- NOTE | 2019-04-07 14:52 | NUR ---
PT STARTED HD AT 1335. AT 1415 HEART RATE INCREASED TO 150. BP REMAINS STABLE. DENIS HD RN AWARE AND ADJUSTING HD. PT AROUSES TO VOICE, NODS HEAD YES TO PAIN, ATTEMPTS TO MOUTH WORDS. FENT IV GIVEN FOR PAIN. HR REMAINED 150. DR FARRAR AT BEDSIDE. WILL RE-EVALUATE POSSIBLE EXTUBATION AT 1330.
--- NOTE | 2019-04-07 17:17 | NUR ---
HEART RATE RETURNED TO BASELINE WITHIN 1HR OFF FINISHING HD. PER DR FARRAR, PT TO STAY INTUBATED OVERNIGHT; WILL REASSESS IN AM. PT MORE AWAKE BY THE HOUR BUT STILL VERY DROWSY. PT NODS HEAD NO TO SEDATION. AT 1720 PT BECAME RESTLESS/ANXIOUS, NODDED HEAD YES TO SOB/UNCOMFORTABLE. FENT IV GIVEN; RT CALLED TO PLACED PT BACK ON AC SETTINGS. PT CALM NOW ON AC SETTINGS; WILL CONT TO MONITOR HEART RATE. BP STABLE.
--- NOTE | 2019-04-07 18:43 | NUR ---
PT RESTLESS/ANXIOUS, GAGGING ON ETT, PROPOFOL STARTED AT 10MCG W GOOD EFFECT.REPORT TO BE GIVEN TO ONCOMING RN.
--- NOTE | 2019-04-07 21:38 | NUR ---
ASSUMPTION OF CARE ASSUMED CARE OF PT @ 1900. PT RESTING IN BED, AROUSES TO VERBAL STIMULI, ANSWERING YES/NO QUESTIONS, FOLLOWING DIRECTIONS, LOZANO. VENT SET TO AC 20/450/5/21%, LS CLEAR/DIM IN THE BASES. MONITOR SHOWS SINUS TACHYCARDIA, HR 120'S, BP STABLE WITH LEVO ON SB. PROPOFOL, PROTONIX, AND SANDOSTATIN GTT INFUSING. CALL PLACED TO DR FARRAR REGARDING HR AND BP, DIRECTED TO INCREASE/TITRATE PROPOFOL FOR COMFORT AND RESTART LEVOPHED IF NEEDED TO MAINTAIN BP MAPS>65.
[2019-04-07 22:06] LABS: HBSAG SCREEN Negative (Negative); HEP A AB, IGM Negative (Negative); HEP B CORE AB, IGM Negative (Negative); HEP C VIRUS AB >11.0 (0.0-0.9)
[2019-04-08 03:49] LABS: BASOPHILS ABSOLUTE AUTO 0.02 K/mm3 (0.00-0.23); BASOPHILS PERCENT AUTO 1 % (0-2); EOSINOPHILS ABSOLUTE AUTO 0.18 K/mm3 (0.00-0.68); EOSINOPHILS PERCENT AUTO 5 % (0-6); Hematocrit 26.4 % (37.0-53.0); IMMATURE GRAN ABSOLUTE AUTO 0.01 K/mm3 (0.00-0.10); IMMATURE GRAN PERCENT AUTO 0 % (0-1); LYMPHOCYTES ABSOLUTE AUTO 0.39 K/mm3 (0.84-5.20); LYMPHOCYTES PERCENT AUTO 10 % (21-46); MONOCYTES ABSOLUTE AUTO 0.49 K/mm3 (0.16-1.47); MONOCYTES PERCENT AUTO 12 % (4-13); Mean Corpuscular HGB 30.6 pg (26.0-34.0); Mean Corpuscular HGB Conc 34.1 g/dL (31.5-36.5); Mean Platelet Volume 11.8 fL (9.1-12.4); NEUTROPHILS ABSOLUTE AUTO 2.89 K/mm3 (1.96-9.15); NEUTROPHILS PERCENT AUTO 73 % (41-73); Platelet Count 76 K/mm3 (150-400); RDW Coefficient Variation 17.1 % (11.7-14.2); RDW Standard Deviation 55.8 fL (35.1-46.3); Red Blood Cell Count 2.94 M/mm3 (4.30-5.90); White Blood Cell Count 3.98 K/mm3 (4.00-11.30)
[2019-04-08 03:52] LABS: Mean Corpuscular Volume 90 fL (80-100)
[2019-04-08 04:04] LABS: Albumin, Blood 2.1 g/dL (3.4-5.0); Anion Gap 10 mmol/L (6-16); Blood Urea Nitrogen 49 mg/dL (8-24); Bun/Creatinine Ratio 12.5 (12.0-20.0); CO2, Blood 23 mmol/L (21-32); Calcium, Blood 7.5 mg/dL (8.5-10.1); Chloride, Blood 109 mmol/L (98-108); Creatinine, Blood 3.92 mg/dL (0.60-1.20); Glomerular Filtration Rate 17 (60-); Glucose, Blood 98 mg/dL (70-99); Magnesium, Blood 1.8 mg/dL (1.6-2.4); Phosphorus, Blood 4.6 mg/dL (2.5-4.9); Sodium, Blood 142 mmol/L (136-145)
--- NOTE | 2019-04-08 05:14 | NUR ---
SHIFT SUMMARY PT REMAINS INTUBATED AND SEDATED, VENT SET TO AC 20/450/5/21%, LS CLEAR, DIM IN THE BASES, O2 SATURATIONS MAINTAINED ABOVE 95%. PT WAS TACHYCARDIC AT BEGINNING OF SHIFT, MILDLY HYPOTENSIVE, PT ANSWERING YES/NO QUESTIONS STATED HE WAS NOT IN PAIN BUT WAS UNCOMFORTABLE WITH THE ETT, PROPOFOL TITRATED TO 30 (SEE FLOWSHEET), HR IMPROVED, BP STABLE W/O USE OF PRESSORS, CURRENTLY SINUS RHYTHM WITH HR 80'S. ABDOMEN SEVERELY DISTENDED, BOWEL TONES HYPOACTIVE, PT NPO, PASSING FLATUS, CBG STABLE BUT SLOWLY TRENDING DOWN.
--- NOTE | 2019-04-08 07:30 | NUR ---
ASSUMED CARE OF PT. PT IS INTUBATED AND SEDATED. AFEBRILE. PT IS SEDATED WITH PROPOFOL @ 30MCG/KG/MIN. PT IS ON OCTREOTIDE DRIP AND PROTONIX DRIP. WILL CONTINUE TO ASSESS NEURO STATUS ONCE SEDATION VACATION IS STARTED.
--- NOTE | 2019-04-08 08:30 | NUR ---
PT'S EX- MANI AT BEDSIDE, UPDATED HER OF PT'S STATUS.
--- NOTE | 2019-04-08 09:09 | NUR ---
SEEN BY DR. ALCOCER. UPDATED HIM OF PT'S STATUS. TURNED OFF PROPOFOL AT THIS TIME FOR POSSIBLE EXTUBATION.
--- NOTE | 2019-04-08 10:25 | NUR ---
1012-PT IS AWAKE. OPENING EYES TO VOICE. FOLLOWING COMMANDS. SEEN BY DR. ALCOCER. PT WAS PLACED ON SBT 10/01 BY ROBIN YOST,RT WAS NOTIFIED OF THE CHANGE.
--- NOTE | 2019-04-08 13:51 | NUR ---
PT HAD A SMEAR BM WITH MARROONISH COLOR STOOL.
--- NOTE | 2019-04-08 15:09 | NUR ---
TOLERATING ICE CHIPS WITHOUT ANY DIFFICULTY BUT HAD STARTED COUGHING AFTER TAKING 3 OZ OF WATER WITHOUT USING A STRAW. SPEECH THERAPY CONSULT WAS ORDERED.
--- NOTE | 2019-04-08 17:21 | NUR ---
SHIFT SUMMARY: PT IS STILL A LITTLE DROWSY BUT OPENS EYES TO VOICE. PT IS ORIENTED AND FOLLOWING COMMANDS. PT WAS ABLE TO GET OUT OF BED TO THE CHAIR WITH PHYSICAL THERAPY USING GAIT BELT. PT WAS HAVING TROUBLE LIFTING HIS LEGS. PT WAS EXTUBATED @ 1044 THIS MORNING. AFEBRILE. TRIED TO DO SWALLOW EVAL BY NURSING PT HAS FAILED. SPEECH THERAPY WAS ORDERED. AFEBRILE.
--- NOTE | 2019-04-08 19:15 | NUR ---
ASSMUED CARE AT 1915, PT DROWSY. ON 2L O2, ALERT TO SELF AND PLACE. FORGETFUL UPON AWAKENING. CASTORENA W/TEMP IN PLACE AND PATNET, PT HAS BEEN AFEBRILE. FAIL BEDSIDE ASPIRATION SCREENING, PENDING SPEECH CONSULT IN THE MORNING. DENIES PAIN.
[2019-04-09 03:54] LABS: BASOPHILS ABSOLUTE AUTO 0.03 K/mm3 (0.00-0.23); BASOPHILS PERCENT AUTO 1 % (0-2); EOSINOPHILS ABSOLUTE AUTO 0.26 K/mm3 (0.00-0.68); EOSINOPHILS PERCENT AUTO 6 % (0-6); Hematocrit 27.1 % (37.0-53.0); Hemoglobin 8.8 g/dL (13.5-17.5); IMMATURE GRAN ABSOLUTE AUTO 0.02 K/mm3 (0.00-0.10); IMMATURE GRAN PERCENT AUTO 1 % (0-1); LYMPHOCYTES ABSOLUTE AUTO 0.33 K/mm3 (0.84-5.20); LYMPHOCYTES PERCENT AUTO 8 % (21-46); MONOCYTES ABSOLUTE AUTO 0.46 K/mm3 (0.16-1.47); MONOCYTES PERCENT AUTO 11 % (4-13); Mean Corpuscular HGB 30.3 pg (26.0-34.0); Mean Corpuscular HGB Conc 32.5 g/dL (31.5-36.5); Mean Platelet Volume 11.1 fL (9.1-12.4); NEUTROPHILS ABSOLUTE AUTO 3.27 K/mm3 (1.96-9.15); NEUTROPHILS PERCENT AUTO 75 % (41-73); Platelet Count 77 K/mm3 (150-400); RDW Standard Deviation 57.8 fL (35.1-46.3); White Blood Cell Count 4.37 K/mm3 (4.00-11.30)
[2019-04-09 04:00] LABS: Mean Corpuscular Volume 93 fL (80-100)
[2019-04-09 04:08] LABS: International Normalized Ratio 1.32; Prothrombin Time Results 13.9 Sec (9.7-11.5)
[2019-04-09 04:13] LABS: Albumin, Blood 2.2 g/dL (3.4-5.0); Anion Gap 10 mmol/L (6-16); Blood Urea Nitrogen 58 mg/dL (8-24); Bun/Creatinine Ratio 12.5 (12.0-20.0); CO2, Blood 22 mmol/L (21-32); Calcium, Blood 7.8 mg/dL (8.5-10.1); Chloride, Blood 111 mmol/L (98-108); Creatinine, Blood 4.65 mg/dL (0.60-1.20); Glomerular Filtration Rate 14 (60-); Glucose, Blood 94 mg/dL (70-99); Sodium, Blood 143 mmol/L (136-145)
[2019-04-09 05:01] LABS: PCO2 Arterial 37.4 mmHg (35-45); PO2 Arterial 68.7 mmHg (80-100); pH Blood Arterial 7.38 (7.35-7.45)
--- NOTE | 2019-04-09 07:22 | NUR ---
PT ALERT TO SELF AND PLACE. WAKES UP CONFUSED PULLS AT LINE, REDIRECTED EVERY HOUR. PT IS NPO PENDING SPEECH CONSULT. CASTORENA IN PLACE, LOW OUTPUT, X1BM. AROUND 0351 PT HEART RATE UP TO 138, PT ALSEEP WITHOUT SYMPTHOMS, WENT TO GRAB EKG MACHINE AND WHEN I RETURNED PT CONVERTED BACK TO SINUS. EKG STILL PREFORMED , PROVIDER CALLED AND NOTIFIED. WILL CONTINUE TO MONITOR
--- NOTE | 2019-04-09 08:07 | NUR ---
ASSUMED CARE / DR VINCENT: REPORT RECEIVED FROM HARINI Chinchilla RN. ASSUMED CARE OF THIS PT AT APPROX 0700. ON ASSESSMENT, THE PT IS AWAKE, HE IS A&O TO SELF, LOCATION AND FOLLOWING COMMANDS BUT OVERALL VERY FORGETFUL W/ INTERMITTENT PERIODS OF CALLING OUT. LS ARE CLEAR & DIM IN BASES, PT ON RA W/ O2 SATS > 92%. MONITOR SHOWS SR W/ PACs, HR 90s, BP STABLE. ABD IS VERY DISTENDED, FIRM TO PALPATION, BASELINE FOR PT. TEMP CASTORENA PATENT/ DRAINING SCANT AMNTS DARK YELLOW URINE. DR VINCENT HAS BEEN AT BEDSIDE THIS AM, COVERING FOR DR AMARO THIS WEEKEND. HE HAS SPOKEN W/ OFFGOING RN, AHRINI, ABOUT PT HAVING DIALYSIS TODAY. WILL CONTINUE TO MONITOR & UPDATE NEEDED.
--- NOTE | 2019-04-09 17:52 | NUR ---
SHIFT SUMMARY / TRANSFER TO PCU: NO ACUTE CHANGES THIS SHIFT. PT REMAINS A&O, FORGETFUL AT TIMES BUT REDIRECTABLE OVERALL. LS ARE CLEAR T/O & PT ON RA W/ O2 SATS > 92%. MONITOR SHOWS SR W/ HR 80-90s, OCCASIONAL RUNS OF SVT W/ HR 130-140s. PT IS ASYMPTOMATIC OF SVT W/ NO CHANGES TO BP & NO CP, PROVIDER AWARE. NO GI/ COMPLAINTS. PT IS TOLERATING PO INTAKE PER ST RECOMMENDATIONS WELL, TEMP CASTORENA PATENT/ DRAINING. REPORT HAS BEEN GIVEN TO RUBÉN Lugo RN TO ASSUME CARE. PT TX TO PCU-11 AT APPROX 1730. CHART & ALL BELONGINGS HAVE BEEN TX W/ PT.
--- NOTE | 2019-04-09 18:00 | NUR ---
SHIFT SUMMARY/ASSUMED CARE: PT TRANSFERRED FROM ICU. SLOW TO RESPOND, GROGGY, BUT PLEASANT. BED ALARM IN PLACE. OCTREOTIDE RUNNING AT THIS TIME. TELE IN PLACE, TACHYCARDIA AT TIMES PER REPORT. DRS AWARE. NO ACUTE NEEDS OR CONCERNS AT THIS TIME.
[2019-04-10 05:08] LABS: BASOPHILS ABSOLUTE AUTO 0.04 K/mm3 (0.00-0.23); BASOPHILS PERCENT AUTO 1 % (0-2); EOSINOPHILS ABSOLUTE AUTO 0.31 K/mm3 (0.00-0.68); EOSINOPHILS PERCENT AUTO 6 % (0-6); Hematocrit 29.4 % (37.0-53.0); Hemoglobin 9.5 g/dL (13.5-17.5); IMMATURE GRAN ABSOLUTE AUTO 0.02 K/mm3 (0.00-0.10); IMMATURE GRAN PERCENT AUTO 0 % (0-1); LYMPHOCYTES PERCENT AUTO 7 % (21-46); MONOCYTES ABSOLUTE AUTO 0.53 K/mm3 (0.16-1.47); MONOCYTES PERCENT AUTO 10 % (4-13); Mean Corpuscular HGB 30.6 pg (26.0-34.0); Mean Corpuscular HGB Conc 32.3 g/dL (31.5-36.5); Mean Corpuscular Volume 95 fL (80-100); Mean Platelet Volume 11.4 fL (9.1-12.4); NEUTROPHILS ABSOLUTE AUTO 4.16 K/mm3 (1.96-9.15); NEUTROPHILS PERCENT AUTO 76 % (41-73); Platelet Count 97 K/mm3 (150-400); RDW Coefficient Variation 16.9 % (11.7-14.2); RDW Standard Deviation 58.4 fL (35.1-46.3); White Blood Cell Count 5.46 K/mm3 (4.00-11.30)
[2019-04-10 05:25] LABS: Albumin, Blood 2.2 g/dL (3.4-5.0); Anion Gap 7 mmol/L (6-16); Blood Urea Nitrogen 44 mg/dL (8-24); Bun/Creatinine Ratio 11.1 (12.0-20.0); CO2, Blood 25 mmol/L (21-32); Calcium, Blood 7.5 mg/dL (8.5-10.1); Chloride, Blood 108 mmol/L (98-108); Creatinine, Blood 3.95 mg/dL (0.60-1.20); Glomerular Filtration Rate 16 (60-); Glucose, Blood 147 mg/dL (70-99); Phosphorus, Blood 4.1 mg/dL (2.5-4.9); Potassium, Blood 3.8 mmol/L (3.5-5.5); Sodium, Blood 140 mmol/L (136-145)
--- NOTE | 2019-04-10 05:39 | NUR ---
END OF SHIFT SUMMARY NO ACUTE CHANGHES THIS SHIFT. VSS. MENTATION IMPROVING, PRESENTS WITH LESS INSTANCES OF CONFUSION. PRESENTS MORE CLEAR. NONIMPULSIVE. CONTINUES WITH THICKENED LIQUIDS AND IS TOLERATING THESE WELL WITHOUT COUGHING AFTER DRINKING AND LUNGS SOUNDS CLEAR. CONTINUES WITH INSTANCES OF INCREASED HR, ASYMPTOMATIC, AND RESIDES W/OUT INTERVENTION. HAS HAD 1 BM THIS SHIFT, DARK RUST COLORED. HAS NOT HAD ANY INSTANCE OF BRIGHT RED EMESIS OR BM. HGB TRENDING UPWARDS. PT HAS BEEN VERY MOBILE IN BED TURNING HIMSELF AND HAS STOOD AT SIDE OF BED THIS SHIFT. BED ALARM REMAINS. WILL CONTINUE TO MONITOR UNTIL SHIFT CHANGE.
--- NOTE | 2019-04-10 17:39 | NUR ---
EVENING NOTE PT AWAKE AND MORE ALERT. SR WITH PERIODS OF ELEVATED HR IN THE 130'S. PT ASYMTOMATIC WHEN HR ELEVATED. HOSPITALIST AWARE. PT UP TO BS AND SAT IN RECLINER AT BEDSIDE MULTIPLE TIMES TODAY. PT COMMENTED THAT HIS BUTTOCKS WERE GETTING SORE. ENCOURAGED HIM TO TURN OFF HIS BACK SIDE Q2H AND PLACED A PILLOW UNDER HIM IN THE RECLINER. EATING WELL. PT NOT THRILLED ABOUT THE HONEY/PUREE DIET BUT HE IS EATING WELL. CASTORENA PATENT. NO DIALYSIS TODAY. CONTINUE POT.
[2019-04-11 04:04] LABS: BASOPHILS ABSOLUTE AUTO 0.02 K/mm3 (0.00-0.23); BASOPHILS PERCENT AUTO 0 % (0-2); EOSINOPHILS PERCENT AUTO 6 % (0-6); Hematocrit 29.6 % (37.0-53.0); Hemoglobin 9.6 g/dL (13.5-17.5); IMMATURE GRAN ABSOLUTE AUTO 0.01 K/mm3 (0.00-0.10); IMMATURE GRAN PERCENT AUTO 0 % (0-1); LYMPHOCYTES ABSOLUTE AUTO 0.35 K/mm3 (0.84-5.20); LYMPHOCYTES PERCENT AUTO 7 % (21-46); MONOCYTES ABSOLUTE AUTO 0.53 K/mm3 (0.16-1.47); MONOCYTES PERCENT AUTO 11 % (4-13); Mean Corpuscular HGB 31.1 pg (26.0-34.0); Mean Corpuscular HGB Conc 32.4 g/dL (31.5-36.5); Mean Corpuscular Volume 96 fL (80-100); Mean Platelet Volume 11.2 fL (9.1-12.4); NEUTROPHILS ABSOLUTE AUTO 3.71 K/mm3 (1.96-9.15); NEUTROPHILS PERCENT AUTO 75 % (41-73); Platelet Count 89 K/mm3 (150-400); RDW Coefficient Variation 16.8 % (11.7-14.2); RDW Standard Deviation 58.7 fL (35.1-46.3); Red Blood Cell Count 3.09 M/mm3 (4.30-5.90); White Blood Cell Count 4.92 K/mm3 (4.00-11.30)
[2019-04-11 04:26] LABS: Albumin, Blood 2.3 g/dL (3.4-5.0); Anion Gap 8 mmol/L (6-16); Blood Urea Nitrogen 44 mg/dL (8-24); Bun/Creatinine Ratio 9.7 (12.0-20.0); CO2, Blood 23 mmol/L (21-32); Chloride, Blood 108 mmol/L (98-108); Creatinine, Blood 4.53 mg/dL (0.60-1.20); Glomerular Filtration Rate 14 (60-); Glucose, Blood 151 mg/dL (70-99); Phosphorus, Blood 4.2 mg/dL (2.5-4.9); Potassium, Blood 3.8 mmol/L (3.5-5.5); Sodium, Blood 139 mmol/L (136-145)
--- NOTE | 2019-04-11 05:16 | NUR ---
END OF SHIFT SUMMARY NO ACUTE CHANGES THIS SHIFT. MENTATION/ORIENTATION CONTINUING TO IMPROVE WITH LESS AND LESS PRESENTATIONS OF CONFUSION. VSS. PT HAS HAD 2 BM'S THIS SHIFT AND ARE IMPROVING IN COLOR, STILL DARK BUT NOT BLACK. [employer] PIGTAIL REMAINS PATENT. PT HAS BEEN UP TO BSC MULTIPLE TIMES THIS SHIFT AND HAS TOLERATED THISD WELL WITH LITTLE ASSISTANCE. PT COMMUNICATING NEEDS WELL. TOLERATING THICKENED LIQUIDS AND APPLESAUCE VERY WELL WITHOUT COUGHING AFTER EATING OR HAVING WET LUNG SOUNDS. WILL CONTINUE TO MONITOR UNTIL SHIFT CHANGE.
--- NOTE | 2019-04-11 18:08 | NUR ---
SHIFT SUMMARY PT A&OX3, PLEASANT & COOPERATIVE, VSS, RA, DENIES CP OR SOB, TELE SR@86, CASTORENA FOR STRICT I&OX 200 MLS OUT THIS SHIFT, 2 BMS BROWN, SOFT, FORMED. TRAE PO, DENIES N&V. SPEECH RE-EVAL CHANGED DIET TO MECH SOFT, THIN LIQUID, NO STRAWS, DENTURES IN, UP TO CHAIR, NO TV ON, MEDS WHOLE WITH APPLESAUCE, DYSPHAGIA PREC, SMALL BITES/SMALL DRINKS AT A TIME: PT COOPERATIVE WITH THESE NEW INSTRUCTIONS. SBA W/FWW TO CHAIR AND BSC. PT CALLS APPROPRIATELY. WILL REPORT TO ONCOMING NOC RN.
--- NOTE | 2019-04-11 20:30 | NUR ---
ASSUME CARE REPORT RECIEVED FROM OFF GOING VIPIN. MONITOR INTACT SHOWING HEART RATE 70'S. AWAKENS EASILY RESPIRATIONS REGULAR AND EASY ON ROOM AIR. ABDOMEN ROUND , FIRM WITH HYPOACTIVE BOWEL SOUNDS CASTORENA PATENT DRAINING MATHEW URINE. REPOSISIONS SELF IN BED.CONTINUE TO MONITOR AND REPORT CHANGE IN PATIENT CONDITION
--- NOTE | 2019-04-11 22:53 | NUR ---
PT REQUESTED THAT L HAND IV BE REMOVED SECONDARY TO HURTING AND "BEING IN THE WAY WHEN I USE MY WALKER" IV DC'D WITH CATH INTACT.
[2019-04-12 03:59] LABS: Hemoglobin 10.2 g/dL (13.5-17.5)
[2019-04-12 04:13] LABS: International Normalized Ratio 1.36; Prothrombin Time Results 14.3 Sec (9.7-11.5)
[2019-04-12 04:20] LABS: Alanine Aminotransfer (ALT/SGP 32 U/L (12-78); Albumin, Blood 2.5 g/dL (3.4-5.0); Albumin/Globulin Ratio 0.5 (0.8-1.8); Alk Phos 175 U/L (50-136); Anion Gap 7 mmol/L (6-16); Aspartate Aminotrans (AST/SGOT 78 U/L (12-37); Bilirubin, Indirect 0.4 mg/dL (0.1-0.7); Bilirubin, Total 1.4 mg/dL (0.1-1.0); Blood Urea Nitrogen 39 mg/dL (8-24); Bun/Creatinine Ratio 8.4 (12.0-20.0); CO2, Blood 26 mmol/L (21-32); Calcium, Blood 8.3 mg/dL (8.5-10.1); Chloride, Blood 104 mmol/L (98-108); Creatinine, Blood 4.67 mg/dL (0.60-1.20); Globulin, Blood 5.2 g/dL (2.2-4.0); Glomerular Filtration Rate 14 (60-); Glucose, Blood 96 mg/dL (70-99); Magnesium, Blood 1.9 mg/dL (1.6-2.4); Phosphorus, Blood 4.4 mg/dL (2.5-4.9); Potassium, Blood 3.9 mmol/L (3.5-5.5); Sodium, Blood 137 mmol/L (136-145); Total Protein, Blood 7.7 g/dL (6.4-8.2)
--- NOTE | 2019-04-12 06:54 | NUR ---
SHIFT SUMMARY UP IN CHAIR VISITING WITH , DR AMARO IN TO SEE ORDERS NOTED. MONITOR INTACT SHOWING SINUS RHYTHM HEART RATE 80'S. GAIT STEADY WITH WALKER. LUNG SOUNDS CLEAR UPPER LOBES RESPIRATION S REGULAR AND EASY AT REST. ABDOMEN SOFT WITH BOWEL SOUNDS FOUR QUADS. CASTORENA PATENT DRAINING DARK MATHEW URINE. CONTINUE TO MONITOR AND REPORT CHANGE IN PATIENT CONDITION
--- NOTE | 2019-04-12 16:51 | NUR ---
CARE HANDOFF REPORT GIVEN TO GISSEL LY ON MEDICAL FLOOR. PT TRANSFERRED TO ROOM 331. BELONGINS GATHERED AND PT TRANSPORTED VIA WHEELCHAIR BY NEIL GUAJARDO. PT'S FAMILY NOTIFIED OF ROOM CHANGE.
--- NOTE | 2019-04-12 18:00 | NUR ---
CASE CONFERENCE WITH , RN, CM EARLIER IN DAY RE: PROGNOSIS AND PLAN OF CARE. PASCUAL NARAYAN [phone], IS PT'S DESIGNATED SURROGATE DECISION MAKER. VISIT MADE TO PT/SO THIS EVENING TO REVIEW INFORMATION PROVIDED BY TODAY TO PT, AT DR'S REQUEST. PT SEEMS TO HAVE A GOOD UNDERSTANDING AND MEMORY OF CONVERSATIONS HE HAD EARLIER TODAY WITH HOSPITALIST AND TRADE EMBALMER. I REVIEWED WITH PASCUAL POC AND CONCERNS THAT ESOPHOGEAL VARICIES MAY BLEED AGAIN, CANCER IN LIVER AND PROBABLE LUNG METS, KIDNEY FAILURE AND MULTISYSTEMS CONCERNS. PT AWAITING REVIEW OF CT RESULTS AND ONCOLOGY CONSULT TO MAKE FURTHER DECISIONS RE: GOALS OF CARE. HE VERBALIZES MOST CONCERN FOR PASCUAL AND FINANCIAL ISSUES. PT REQUESTED BLANK FORMS FOR A WILL AND POA, WHICH I PROVIDED TO THEM. HE BROUGHT UP HOSPICE HE HAS DISCUSSED THIS WITH DRS ALREADY AND THE [facility] TO HIM. THEY HAD TALKED WITH A CM EARLIER IN THE WEEK WHILE IN ICU AND WOULD LIKE TO TALK FURTHER ABOUT OPTIONS FOR AFTER CARE. PASCUAL WORKS 40 HOURS/WEEK, 10 HOUR DAYS, AND CANNOT STAY HOME TO CARE FOR PT DURING THOSE HOURS. WE DISCUSSED CODE STATUS AT [facility] AND WHEN ASKED WHAT HE WOULD LIKE IF HE WERE TO HAVE CARDIAC OR PULMONARY ISSUES PT STATES HE WANTS MEDICATIONS AND TREATMENT FOR HIS ILLNESS AT THIS TIME BUT HE DOES NOT WANT CPR OR INTUBATION UNDER ANY CIRCUMSTANCES. PASCUAL TEARFUL AT TIMES AND SUPPORTIVE, LOVING TOWARDS PT. REPORT OF MY VISIT GIVEN TO DR ALVA AND PT'S RN. ORDERS OBTAINED AND ENTERED FOR CHANGE IN CODE STATUS TO DNR. WILL FOLLOW DAILY FOR SUPPORT AND ASSIST WITH PT'S DESIRED GOALS OF CARE AND ADVANCED CARE PLANNING.
--- NOTE | 2019-04-12 18:22 | NUR ---
RECEIVED FROM U TO RM 331 AT 1715. HE IS SITTING IN A CHAIR. HIS EX IS PRESENT. THEY ARE IN CONVERSATION. PALLIATIVE NURSE NOTIFIED THAT SHE IS HERE. RT JUGULAR LINE SECURED AND CAPPED. LFA PERIPH SL IN PLACE. HE LOOKS CACHEXIC AND JAUNDICE. CIRRHOTIC ABD VERY NOTICEABLE. HE UNDERSTANDS HE IS NPO AFTER MN FOR PERMACATH PLACEMENT IN AM.WILL GIVE HIM A URINAL FOR MEASURING U.O. KELL WAS DC'D EARLIER AT 1230, APPARENTLY NO VOID YET. NO COMPLAINTS EXCEPT THAT HE CAN'T HAVE HIS FISH TACOS. I RECEIVED A NEW ORDER FOR DNR. WILL PUT PURPLE ARMBAND ON HIM.
[2019-04-13 05:06] LABS: Hematocrit 32.4 % (37.0-53.0); Hemoglobin 10.2 g/dL (13.5-17.5)
[2019-04-13 05:45] LABS: Magnesium, Blood 1.9 mg/dL (1.6-2.4)
[2019-04-13 05:47] LABS: Albumin, Blood 2.5 g/dL (3.4-5.0); Anion Gap 8 mmol/L (6-16); Blood Urea Nitrogen 38 mg/dL (8-24); Bun/Creatinine Ratio 7.6 (12.0-20.0); CO2, Blood 26 mmol/L (21-32); Calcium, Blood 8.2 mg/dL (8.5-10.1); Chloride, Blood 101 mmol/L (98-108); Creatinine, Blood 5.01 mg/dL (0.60-1.20); Glomerular Filtration Rate 12 (60-); Glucose, Blood 102 mg/dL (70-99); Phosphorus, Blood 4.7 mg/dL (2.5-4.9); Sodium, Blood 135 mmol/L (136-145)
--- NOTE | 2019-04-13 15:56 | NUR ---
SHIFT SUMMARY PT AWAKE, SITTING UP TO CHAIR, DURING SHIFT REPORT. DR YOUNG IN TALKING TO PT; DISCUSSING PROGNOSIS OF LIVER CA. PT NPO, WAITING FOR PERMA CATH PLACEMENT. NO DIALYSIS TODAY D/T NEEDED PROCEDURES. PT WITH HX CIRRHOSIS AND ACITES; ABD VERY DISTENDED. PT HAVING PARACENTESIS AFTER PERMA CATH PLACEMET; 9L OFF, PER RADIOLOGY. PERMA CATH BLEEDING AT SITE DURING PARACENTESIS; SATELLITE DISH INSTALLER NOTIFIED TO [facility] ON PT. DRSG CHANGED AND RE-ENFORCED. NO FURTHER BLEEDING AFTER RETURNING TO . DR CHRISTOPHER TO TO [facility] ON PT WELL. ALBUMIN GIVEN PER EMAR AFTER PT RETURNED TO . PT/OT ATTEMPTED TO WORK WITH PT, BUT PT TO TIRED AND WORN OUT. PT SLEEPING FOR A WHILE THEN WOKE WITH C/O LEG CRAMPS. DR ALVA NOTIFIED. NEW ORDERS RECEIVED. PT INFORMED. PALLATIVE CARE RN TO SEE PT THIS AFTERNOON. PT RESTING QUIETLY WATCHING TV. CALL LT IN REACH.
--- NOTE | 2019-04-13 17:56 | NUR ---
Pal Care visit prior to Dr visit and conversation with pt and Angelika/so. Pt had permacath placed today and had a palliative paracentesis. His chief c/o is leg cramps, leg pain and swelling. He believed he would have dialysis today. He is waiting for bengay for his legs. His abdomen is distended. He is alert and oriented. Angelika had arrived from work as prearranged to meet with and discuss plans of care and d/c goals. Dr. Quintero spent significant time discussing advanced care planning, code status, answering questions re: pt's current health issues and plans for care, options and dc planning. EOL care, comfort care, rehab and placement all reviewed and discussed. Angelika does not have help at home to care for pt while she is at work so is requesting placement in a facility or in rehab if pt meets criteria. Pt is a and may qualify for assist/placement per [place]. Afterwards, per Dr Quintero and pt/so POLST completed based on pt's expressed wishes with SO, Angelika's support. Pt wishes to be a DNR with limited life saving interventions. At this time he would like medical management/tx of his multiple end stage illnesses. If his heart stops, he would like to be let go with no advanced life support measures initiated. This was reviewed several times and restated in different ways. He wants to continue with dialysis and palliative paracentesis at this time. After POLST was completed, copies given to SO with the original for [facility] PCP, copy placed on chart and copy faxed to medical records. Reviewed events and discussion with Lexie in CM for d/c planning to begin. Pt to receive dialysis tomorrow. OP dialysis to be set up per with placement options explored locally and with the [facility]. RN updated on all of the above also.
--- NOTE | 2019-04-13 22:28 | NUR ---
DR LEE IN TO CHECK ON PATIENT. REPORTS TIRED/SLEEPING AND TO CALL HIM BEFORE MIDNIGHT IF MORE AWAKE; OTHERWISE LET SLEEP.
--- NOTE | 2019-04-13 23:51 | NUR ---
IV ALBUMIN INFUSED PER EMAR. PATIENT RESTING/SLEEPING. CALL LIGHT IN REACH.
--- NOTE | 2019-04-14 03:56 | NUR ---
SHIFT SUMMARY PATIENT HAD NO ACUTE CHANGES OBSERVED. LETHARGIC IN ROOM AT SHIFT CHANGE. AXOX3 AND SBA. PIV REMAINS INTACT. IV ALBUMIN GIVEN PER EMAR. DR LEE REPORTED HE WENT TO SEE PATIENT AND WAS SLEEPING AND SAID LET HIM SLEEP. ALSO TO CALL HIM IF HE WOKE UP BEFORE MIDNIGHT. PATIENT RESTED/SLEPT T/O THE SHIFT. DENIES PAIN, SOB, AND N/V. BP 94/47 AND AFEBRILE. CALL LIGHT IN REACH. BED IN LOWEST POSITION. WILL CONTINUE TO MONITOR UNTIL DAY SHIFT NURSE ASSUMES CARE.
[2019-04-14 05:07] LABS: Hematocrit 25.5 % (37.0-53.0); Hemoglobin 8.3 g/dL (13.5-17.5)
[2019-04-14 05:38] LABS: Magnesium, Blood 1.9 mg/dL (1.6-2.4)
[2019-04-14 05:42] LABS: Albumin, Blood 2.6 g/dL (3.4-5.0); Anion Gap 10 mmol/L (6-16); Blood Urea Nitrogen 44 mg/dL (8-24); Bun/Creatinine Ratio 7.4 (12.0-20.0); CO2, Blood 23 mmol/L (21-32); Chloride, Blood 102 mmol/L (98-108); Creatinine, Blood 5.97 mg/dL (0.60-1.20); Glomerular Filtration Rate 10 (60-); Glucose, Blood 121 mg/dL (70-99); Phosphorus, Blood 5.3 mg/dL (2.5-4.9); Potassium, Blood 3.7 mmol/L (3.5-5.5); Sodium, Blood 135 mmol/L (136-145)
[2019-04-14] MEDS ORDERED: AMLO5 PO (14:59)
[2019-04-14] MEDS ORDERED: GLUCOSE BITS1 GM PO (15:01)
[2019-04-14] MEDS ORDERED: HYDHCL25 PO (15:02)
--- NOTE | 2019-04-14 17:44 | NUR ---
SHIFT SUMMARY NO ACUTE CHANGES DURING THIS SHIFT. PT TOLORATED DIALYSIS WELL AND RESTED MOST OF THE AFTERNOON. PT TOLORATED FOOD WELL. PT HAS DENIED PAIN THIS SHIFT. PT HAS CALL LIGHT WITH IN REACH FOR SAFETY AND WILL COUNTINUE TO MONITOR. WILL REPORT TO AYAN CHAUHAN.
--- NOTE | 2019-04-15 03:18 | NUR ---
PATIENT OUT OF ROOM AND GOING TO WALK HALLWAY.
--- NOTE | 2019-04-15 03:47 | NUR ---
BACK IN ROOM WATCHING TV.
--- NOTE | 2019-04-15 03:48 | NUR ---
SHIFT SUMMARY PATIENT HAD NO ACUTE CHANGES OBSERVED THIS SHIFT. AXO X3 AND INDEPENDENT IN ROOM AND HALLWAY. REPORTED INSOMNIA AND MELATONIN 3 MG GIVEN PER EMAR. PIV REMAINS INTACT. VSS/AFEBRILE. DENIES PAIN, SOB, AND N/V. COOPERATIVE WITH CARE. CALL LIGHT IN REACH. BED IN LOWEST POSITION. WILL CONTINUE TO MONITOR UNTIL DAY SHIFT NURSE ASSUMES CARE.
--- NOTE | 2019-04-15 07:21 | NUR ---
DR AMARO CALLED WITH STAT LAB RESULTS FOR POTASSIUM AND HgB.
--- NOTE | 2019-04-15 18:16 | NUR ---
SHIFT SUMMARY PATIENT IS PLEASANT, ALERT AND ORIENTED INDEPENDENT. DOES REQUIRE HELP WITH SOME OF HIS DAILY TASKS. HE DID HAVE A BEDBATH. AWAITING [facility] APPROVAL FOR DIALYSIS, NO ACUTE CONCERNS AT THIS TIME. PATIENT JUST STATES THAT HE IS BORED OF BEING IN THE HOSPITAL.
--- NOTE | 2019-04-15 23:15 | NUR ---
lt forarm saline lock present, lt hand iv has been dc. started for procedure.
--- NOTE | 2019-04-16 05:03 | NUR ---
63 year old [place] with hx of hep C who had completed tx for hep C with ascites with returning volume. Hed started paracentesis arounf 3 or 4 months ago per PT. 9 liters tapped 04/13/19 and volume returning to firm abd. PT started on dialysis this hospitalization and had rt chest vas cath placed. Tolerating dialysis and activity. On room air, up ad ashlee. Tolerating diet with bowels moving per PT. Continues on dialysis, few drop of cloudy tea colored urine out. Pleasant cooperative.Says he stopped smoking and ETOH use 6 months ago. Ex in and supportive. PT lives with her. plans to dc home with home health and outpt dialysis when approved by [facility], PT says Thursday?
[2019-04-16 06:12] LABS: Hematocrit 25.7 % (37.0-53.0); Hemoglobin 8.4 g/dL (13.5-17.5)
[2019-04-16 06:36] LABS: Albumin, Blood 2.6 g/dL (3.4-5.0); Anion Gap 9 mmol/L (6-16); Blood Urea Nitrogen 46 mg/dL (8-24); Bun/Creatinine Ratio 6.8 (12.0-20.0); CO2, Blood 21 mmol/L (21-32); Calcium, Blood 7.8 mg/dL (8.5-10.1); Chloride, Blood 100 mmol/L (98-108); Creatinine, Blood 6.81 mg/dL (0.60-1.20); Glomerular Filtration Rate 9 (60-); Glucose, Blood 181 mg/dL (70-99); Magnesium, Blood 1.7 mg/dL (1.6-2.4); Phosphorus, Blood 5.2 mg/dL (2.5-4.9); Potassium, Blood 3.9 mmol/L (3.5-5.5); Sodium, Blood 130 mmol/L (136-145)
--- NOTE | 2019-04-16 18:42 | NUR ---
SHIFT SUMMARY PATIENT IS ALERT AND ORIENTED. INDEPENDENT IN THE ROOM. NO ACUTE CONCERNS. HE IS AWAITING PLACEMENT.
[2019-04-17 05:39] LABS: Hematocrit 26.5 % (37.0-53.0); Hemoglobin 8.4 g/dL (13.5-17.5)
[2019-04-17 06:00] LABS: Albumin, Blood 2.5 g/dL (3.4-5.0); Anion Gap 11 mmol/L (6-16); Blood Urea Nitrogen 38 mg/dL (8-24); Bun/Creatinine Ratio 6.1 (12.0-20.0); CO2, Blood 22 mmol/L (21-32); Calcium, Blood 7.6 mg/dL (8.5-10.1); Chloride, Blood 99 mmol/L (98-108); Creatinine, Blood 6.19 mg/dL (0.60-1.20); Glomerular Filtration Rate 10 (60-); Glucose, Blood 255 mg/dL (70-99); Magnesium, Blood 1.6 mg/dL (1.6-2.4); Phosphorus, Blood 4.6 mg/dL (2.5-4.9); Potassium, Blood 3.7 mmol/L (3.5-5.5); Sodium, Blood 132 mmol/L (136-145)
--- NOTE | 2019-04-17 11:14 | NUR ---
HE IS ASLEEP ON HIS R SIDE. HE HAS HAD NO COMPLAINTS TODAY. APPETITE GOOD BUT SLIGHTLY SOB AFTER BREAKFAST " BECAUSE I STUFFED MYSELF". HIS ASCITES IS SEVERE.
--- NOTE | 2019-04-17 13:47 | NUR ---
ASSUMED CARE OF PATIENT FROM DEVELOPMENT REPGISSEL DARDEN. AGREE WITH PREVIOUS PATIENT ASSESSMENT, NO CHANGES AT THIS TIME. PT RESTING COMFORTABLE AND DENIES NEEDS AT THIS TIME
--- NOTE | 2019-04-17 17:31 | NUR ---
SHIFT SUMMARY NO ACUTE CHANGES SINCE I ASSUMED CARE OF PATIENT. HE IS A&O AND IND IN ROOM. AT BEDSIDE AT THIS TIME. NO COMPLAINTS TODAY. IV REMOVED AND NO IV ORDER IN PLACE. PATIENT IS AWAITING OUTPATIENT DIALYSIS TO BE SET UP PRIOR TO DISCHARGE.
--- NOTE | 2019-04-18 05:20 | NUR ---
SHIFT SUMMARY NO ACUTE CHANGES TO REPORT THIS SHIFT. PT HAS BEEN INDEPENDENT IN THE ROOM. HE DENIES NEEDS FOR MOST OF THE NIGHT. ASSESSMENT UNCHANGED, PT AWAITING FOR ARRANGENTS FOR OUTPT DIALYSIS WHICH SHOULD HOPEFULLY BE ARRANGED WITHIN THE NEXT DAY OR TWO. BED IN LOWEST POSITION, CALL LIGHT WITHIN REACH. WILL CONTINUE TO MONITOR AND REPORT TO ONCOMING RN.
[2019-04-18 05:36] LABS: Hematocrit 25.5 % (37.0-53.0); Hemoglobin 8.3 g/dL (13.5-17.5)
[2019-04-18 05:57] LABS: Magnesium, Blood 1.7 mg/dL (1.6-2.4)
[2019-04-18 05:58] LABS: Albumin, Blood 2.5 g/dL (3.4-5.0); Anion Gap 9 mmol/L (6-16); Blood Urea Nitrogen 50 mg/dL (8-24); Bun/Creatinine Ratio 6.9 (12.0-20.0); CO2, Blood 23 mmol/L (21-32); Calcium, Blood 7.8 mg/dL (8.5-10.1); Chloride, Blood 98 mmol/L (98-108); Creatinine, Blood 7.29 mg/dL (0.60-1.20); Glomerular Filtration Rate 8 (60-); Glucose, Blood 264 mg/dL (70-99); Phosphorus, Blood 5.4 mg/dL (2.5-4.9); Potassium, Blood 3.8 mmol/L (3.5-5.5); Sodium, Blood 130 mmol/L (136-145)
--- NOTE | 2019-04-18 17:57 | NUR ---
SHIFT SUMMARY RASHMI DENIED PAIN THIS SHIFT. ABD VERY DISTENDED, PT STATES HE WOULD LIKE ANOTHER PARACENTESIS. TOOK PILLS WITH WATER ORDERED, R TIFFANY CW C/D/I. ANURIC; FAMILY VISITED, PT WENT ON A WALK. CALL LIGHT IN REACH, [facility]
--- NOTE | 2019-04-19 03:57 | NUR ---
SHIFT SUMMARY ADMITTED FOR UPPER GI BLEED. DNR CODE. DIALYSIS PT. H[facility]EFUL [facility] CAN SET UP DIALYSIS TREATMENTS, THEN PT CAN DC. DR GILBERT ROUNDED ON PT, SCHEDULED PARACENTESIS FOR TOMORROW, PT HAS SEVERE ASCITES. PT IS INDEPENDENT IN ROOM. A&O X4, RA. ASPIRATION PRECAUTIONS ARE IN PLACE BUT THIS PT HAS NO DIFFICULTY SWALLOWING. NIGHT HOSPITALIST ORDERED BENEDRYL THIS SHIFT FOR PT'S GENERALIZED ITCHING. ORDERED PTT AND PLATELET LAB FOR TODAY IN PREPARATION FOR TOMORROW'S PROCEDURE. THIS PT LIVES WITH HIS EX . HX: ENCEPHALOPATHY, ESRD, DM2, HTN, CKD4, ESOPHAGEAL VARICES, ETOH, HEP C CIRRHOSIS, ETOH.
[2019-04-19 05:28] LABS: Hemoglobin 8.6 g/dL (13.5-17.5); Platelet Count 75 K/mm3 (150-400)
[2019-04-19 05:49] LABS: Magnesium, Blood 1.7 mg/dL (1.6-2.4)
[2019-04-19 05:51] LABS: Albumin, Blood 2.5 g/dL (3.4-5.0); Anion Gap 11 mmol/L (6-16); Blood Urea Nitrogen 40 mg/dL (8-24); Bun/Creatinine Ratio 6.4 (12.0-20.0); CO2, Blood 23 mmol/L (21-32); Calcium, Blood 8.2 mg/dL (8.5-10.1); Chloride, Blood 97 mmol/L (98-108); Creatinine, Blood 6.29 mg/dL (0.60-1.20); Glomerular Filtration Rate 10 (60-); Glucose, Blood 184 mg/dL (70-99); Phosphorus, Blood 5.3 mg/dL (2.5-4.9); Potassium, Blood 3.6 mmol/L (3.5-5.5); Sodium, Blood 131 mmol/L (136-145)
--- NOTE | 2019-04-19 17:19 | NUR ---
Routine spiritual care note: Juan appears somewhat confused today. He told me "no one" has updated him on POC. According to RN, logistics planner and RN have spoken to pt about plan today. He also told me he had "40 liters of fluid removed" which is clearly not true. He expressed frustration with hospital food, and appears to beleive he can return home and manage on his own. "I could leave right now, couldn't I?" He appears frail and weak. His ex- Angelika recently Juan. She works full-time, and although she cares about him, idicated to me when I last spoke with her that she cannot meet all of Juan' care needs. It is unclear to me that they even live together anymore. Juan told me that he feels like he is getting better. Whe I asked him to explain his understanding of his dx, he said "I need to have dialysis, but I can do that." He did not mention cancer, oncology reccomendations, or end-of-life. He denied fears or concerns. Mostly, he was focused on dinner. I am uncertain he understands his dire dx, his physical decline, or his prognosis. He told me he hates being hospitalized and is "tired of this." He wants to be home. He is non-confucianist, but responded well to emotional affirmation, theraputic listening, and encouragement. Conferenced with palliative care RN with my concerns. I will remain available to pt and family.
--- NOTE | 2019-04-19 18:07 | NUR ---
SHIFT SUMMARY PT REFUSED SURGICAL PLACEMENT OF PLEURAL VAC THIS SHIFT. TO FOLLOW UP OUTPT. PT HAD PARACENTESIS THIS SHIFT. 10.5L REMOVED. 3 VIALS OF ALBUMIN GIVEN. PT EAGER TO DC. NO OTHER CHANGES IN ASSESSMENT AT THIS TIME. VSS. WILL CONTINUE TO MONITOR UNTIL TURNOVER IS COMPLETE.
--- NOTE | 2019-04-20 04:33 | NUR ---
SHIFT SUMMARY ADMITTED FOR UPPER GI BLEED. DNR CODE. AWAITING [facility] TO SET UP DIALYSIS BEFORE PT CAN DC. ASCITES: PARACENTESIS PERFORMED YESTERDAY - 10.5 L OUT. PLEUROVAC INSTALLATION MAY HAVE TO BE ARRANGED ON AN OUTPT BASIS. DIALYSIS MAY OCCUR TODAY. PT CAN BE FORGETFUL AND/OR CONFUSED AT TIMES. ALTHOUGH ASPIRATION PRECAUTIONS EXIST, THIS PT HAS NO PROBLEMS WITH SWALLOWING. RA. LIVES WITH EX . HX: HEP C CIRRHOSIS, ESRD, DM2, HTN, CKD4, ESOPHAGEAL VARICES, ETOH. PT GIVEN BENEDRYL FOR SKIN ITCHING 2X THIS SHIFT.
[2019-04-20 05:16] LABS: Hematocrit 26.1 % (37.0-53.0); Hemoglobin 8.6 g/dL (13.5-17.5)
[2019-04-20 05:31] LABS: International Normalized Ratio 1.29; Prothrombin Time Results 13.6 Sec (9.7-11.5)
[2019-04-20 05:44] LABS: Albumin/Globulin Ratio 0.7 (0.8-1.8); Bilirubin, Total 2.3 mg/dL (0.1-1.0); Calcium, Blood 8.2 mg/dL (8.5-10.1); Creatinine, Blood 7.73 mg/dL (0.60-1.20); Globulin, Blood 4.2 g/dL (2.2-4.0); Magnesium, Blood 1.7 mg/dL (1.6-2.4); Phosphorus, Blood 6.4 mg/dL (2.5-4.9); Potassium, Blood 3.6 mmol/L (3.5-5.5); Total Protein, Blood 7.2 g/dL (6.4-8.2)
--- NOTE | 2019-04-20 12:15 | NUR ---
ALERTED CARE MANAGEMENT (GERARDO) THAT PT WOULD LIKE TO SPEAK W/HER. SHE SAID HER OR JAMAR WOULD BE BY MOMENTARILY TO FURTHER ADDRESS ANY Q'S/CONCERNS HE MIGHT HAVE AND THAT D/C IS PENDING [facility] AUTHORIZATION OF OUTPATIENT DIALYSIS. PT MADE AWARE OF THIS AND DIDN'T HAVE ANY FURTHER Q'S FOR RN AT THIS TIME.
--- NOTE | 2019-04-20 18:09 | NUR ---
SHIFT SUMMARY- PT A/OX4, IRRITABLE AT TIMES. PT DENIES ANY COMPLAINTS T/O THE DAY. PT UPSET THAT HE IS STILL HERE, CARE MANAGEMENT UPDATED PT ON PLAN FOR OUTPATIENT DIALYSIS. PT RECEIVED DIALYSIS TODAY. LS CLEAR, ON RA. MOD ABD DISTENTION, PARACENTESIS YESTERDAY. 2+ BLE EDEMA. NO OTHER ACUTE CHANGES THIS SHIFT. PT AWAITING OUTPATIENT DIALYSIS TO BE SET UP.
[2019-04-21 05:24] LABS: Hematocrit 24.1 % (37.0-53.0)
[2019-04-21 05:42] LABS: Albumin, Blood 2.6 g/dL (3.4-5.0); Anion Gap 9 mmol/L (6-16); Blood Urea Nitrogen 46 mg/dL (8-24); Bun/Creatinine Ratio 7.2 (12.0-20.0); CO2, Blood 24 mmol/L (21-32); Chloride, Blood 97 mmol/L (98-108); Creatinine, Blood 6.41 mg/dL (0.60-1.20); Glomerular Filtration Rate 9 (60-); Glucose, Blood 170 mg/dL (70-99); Magnesium, Blood 1.8 mg/dL (1.6-2.4); Phosphorus, Blood 5.7 mg/dL (2.5-4.9); Potassium, Blood 4.2 mmol/L (3.5-5.5); Sodium, Blood 130 mmol/L (136-145)
--- NOTE | 2019-04-21 07:12 | NUR ---
NO CHANGES TO REPORT. PT WAS PLEASANT AN COOPERATIVE WITH CARE.
[2019-04-21] MEDS ORDERED: DILT120 PO (16:41)
[2019-04-21] MEDS ORDERED: CIPR500 PO (16:41)
--- NOTE | 2019-04-21 17:38 | NUR ---
PT DISCHARGED THE PT VERBALIZED UNDERSTANDING OF THE DC INSTRUCTIONS, THE PTS PRESCRIPTIONS WERE FAXED TO THE [facility] REQUESTED, THE PT HAD A FOLLOW UP APPOINTMENT ESTABLISHED PRIOR TO DC, AND AN APPOINTMENT FOR DIALYSIS PRIOR TO DC, THE PT APPEARED TO BE BREATHING EASILY ON RA, THE PT WAS TRANSFERED VIA WHEELCHAIR ACCOMPANIED BY HIS , PT WAS A/OX3 AT THE TIME OF DC
[2019-04-25] MEDS ORDERED: OXYC5 PO (14:01)
[2019-04-25] MEDS ORDERED: AMLO5 PO (14:02)
[2019-04-25] MEDS ORDERED: HYDRA25 PO (14:02)
[2019-04-25] MEDS ORDERED: MIDODRINE PO (14:05)
[2019-04-25] MEDS ORDERED: TRAZ50 PO (14:06)
== END 2019-04-21 17:22 | disposition home or self-care (01) | DRG 368 ==
LOC: ER 11:08 → ICUW 11:09 → PCU 11:09 → ICUW 18:35 → MEDS 04-06 08:06 → ICUW 04-06 08:06 → PCU 04-06 08:06 → ICUW 04-06 08:07 → PCU 04-09 17:46 → MEDS 04-12 17:15
PROVIDERS: Emergency Medicine; Internal Medicine Critical Care Medicine; Internal Medicine Gastroenterology; Internal Medicine Nephrology; Internal Medicine Pulmonary Disease; Nurse Practitioner Acute Care; ADMIT Internal Medicine
PROC: 0BH17EZ Insertion of Endotracheal Airway into Trachea, Via Natural or Artificial Opening (ICD-10-PCS; 2019-04-05)
PROC: 5A1945Z Respiratory Ventilation, 24-96 Consecutive Hours (ICD-10-PCS; 2019-04-05)
PROC: 0W9G3ZZ Drainage of Peritoneal Cavity, Percutaneous Approach (ICD-10-PCS; principal; 2019-04-05 21:00)
PROC: 06L38CZ Occlusion of Esophageal Vein with Extraluminal Device, Via Natural or Artificial Opening Endoscopic (ICD-10-PCS; 2019-04-05 21:00)
PROC: 02HV33Z Insertion of Infusion Device into Superior Vena Cava, Percutaneous Approach (ICD-10-PCS; 2019-04-06)
DX: I85.01 Esophageal varices with bleeding (principal); K65.2 Spontaneous bacterial peritonitis; J96.01 Acute respiratory failure with hypoxia; K76.7 Hepatorenal syndrome; E87.2 Acidosis; K76.6 Portal hypertension; N17.9 Acute kidney failure, unspecified; C22.0 Liver cell carcinoma; D62 Acute posthemorrhagic anemia; R64 Cachexia; N18.5 Chronic kidney disease, stage 5; Z87.891 Personal history of nicotine dependence; K74.60 Unspecified cirrhosis of liver; I12.9 Hypertensive chronic kidney disease with stage 1 through stage 4 chronic kidney disease, or unspecified chronic kidney disease; E11.22 Type 2 diabetes mellitus with diabetic chronic kidney disease; B19.20 Unspecified viral hepatitis C without hepatic coma; E83.39 Other disorders of phosphorus metabolism; E88.09 Other disorders of plasma-protein metabolism, not elsewhere classified; K44.9 Diaphragmatic hernia without obstruction or gangrene; K26.9 Duodenal ulcer, unspecified as acute or chronic, without hemorrhage or perforation; R77.2 Abnormality of alphafetoprotein; E55.9 Vitamin D deficiency, unspecified; K72.90 Hepatic failure, unspecified without coma; D69.6 Thrombocytopenia, unspecified; B18.2 Chronic viral hepatitis C
CPT/HCPCS: 31500; 31720; 36415; 36430; 36556; 36558; 36600; 49083; 51702; 71045; 71250; 74176; 76705; 76770; 76937; 80053; 80069; 80074; 81001; 82042; 82105; 82140; 82248; 82330; 82803; 82947; 83036; 83605; 83735; 84100; 84132; 84157; 85014; 85018; 85025; 85049; 85610; 85730; 86317; 86850; 86900; 86901; 86923; 87040; 87070; 87075; 87077; 87086; 87186; 87205; 88108; 89051; 92526; 92610; 93005; 93010; 93975; 94002; 94003; 96365; 96367; 96372; 96375; 96376; 97110; 97116; 97162; 97167; 97530; 99152; 99153; 99285-25; C1750; C1751; C1752; C1769; C9113; G0378; J0696; J0881; J1430; J1644; J2250; J2354; J2405; J2704; J2765; J3010; J7030; J7040; J7050; J7060; J7070; J7120; P9016; P9046; P9059; Q0163

== ENCOUNTER 2019-04-28 09:41 | Day surgery (SDC) | payer OTHER ==
[~2019-04-28] VITALS: Ht 182.9 cm; Wt 99.4 kg
[~2019-04-28 09:41] MED LIST changes: +CIPR500 PO; +DILT120 PO; +GLUCOSE BITS1 GM PO; +MIDODRINE PO; +OXYC5 PO
--- NOTE | 2019-04-28 10:55 | NUR ---
PT ADMITTED TO [facility]. AGREES WITH PLANNED SURGERY. LUNG SOUNDS SLIGHTLY DIMINSHED ON LEFT, CLEAR ON RIGHT. C/O MILD DIFFICULTY BREATHING DUE TO FLUID ON ABD. PITTING EDEMAN TO LOWER EXTREMITIES BILATERALLY.
--- NOTE | 2019-04-28 10:56 | NUR ---
BP LOW 83/50, HEART RATE 150'S. DR. APODACA INFORME. NO ORDERS GIVEN. STATES HAVE ANESTHESIA EVALUATE.
--- NOTE | 2019-04-28 11:12 | NUR ---
DR. KAMARA IN TO SEE PT. EKG ORDEDER. SURGERY CANCELLED DUO TO TACHYCARDIA.
--- NOTE | 2019-04-28 11:31 | NUR ---
PT NEEDS TO GO THROUGH THE ED PER DR. ISAACS. REPORT CALLED TO OLEG BYRNES RN IN THE ED. PT TRANSPORTED TO ED 19 BY MARYAM TORRES RN.
[2019-04-28] MEDS ORDERED: HYDHCL25 PO ×2 (18:35)
[2019-04-29] MEDS ORDERED: Amiodarone HCl200 MG PO ×2 (15:27)
== END 2019-04-28 23:56 | disposition home or self-care (01) ==
LOC: ER 09:41 → ORSCMMR 09:41 → ER 09:42 → ORSCMMR 09:42 → EDSTATUS 10:45 → ORSCMMR 10:45 → ORD 10:45 → ORSCMMR 23:56
DX: K70.31 Alcoholic cirrhosis of liver with ascites (principal); Z53.9 Procedure and treatment not carried out, unspecified reason
CPT/HCPCS: 82435; 82947; 84132; 84295; 93005; 93010; J0690; J2704; J3010; J7030

== ENCOUNTER 2019-04-28 11:52 | Observation (INO) | payer OTHER ==
[~2019-04-28] VITALS: Ht 182.9 cm; Wt 103.0 kg
[2019-04-28 12:22] LABS: BASOPHILS ABSOLUTE AUTO 0.03 K/mm3 (0.00-0.23); BASOPHILS PERCENT AUTO 1 % (0-2); EOSINOPHILS ABSOLUTE AUTO 0.08 K/mm3 (0.00-0.68); EOSINOPHILS PERCENT AUTO 1 % (0-6); Hematocrit 25.9 % (37.0-53.0); Hemoglobin 8.9 g/dL (13.5-17.5); IMMATURE GRAN ABSOLUTE AUTO 0.03 K/mm3 (0.00-0.10); IMMATURE GRAN PERCENT AUTO 1 % (0-1); LYMPHOCYTES ABSOLUTE AUTO 0.25 K/mm3 (0.84-5.20); LYMPHOCYTES PERCENT AUTO 4 % (21-46); MONOCYTES ABSOLUTE AUTO 0.77 K/mm3 (0.16-1.47); MONOCYTES PERCENT AUTO 14 % (4-13); Mean Corpuscular HGB 31.1 pg (26.0-34.0); Mean Corpuscular HGB Conc 34.4 g/dL (31.5-36.5); Mean Corpuscular Volume 91 fL (80-100); Mean Platelet Volume 12.2 fL (9.1-12.4); NEUTROPHILS ABSOLUTE AUTO 4.47 K/mm3 (1.96-9.15); NEUTROPHILS PERCENT AUTO 80 % (41-73); Platelet Count 117 K/mm3 (150-400); RDW Coefficient Variation 19.9 % (11.7-14.2); RDW Standard Deviation 63.4 fL (35.1-46.3); Red Blood Cell Count 2.86 M/mm3 (4.30-5.90); White Blood Cell Count 5.63 K/mm3 (4.00-11.30)
[2019-04-28 12:41] LABS: Albumin, Blood 2.2 g/dL (3.4-5.0); Albumin/Globulin Ratio 0.4 (0.8-1.8); Bilirubin, Total 5.4 mg/dL (0.1-1.0); Calcium, Blood 7.9 mg/dL (8.5-10.1); Total Protein, Blood 7.2 g/dL (6.4-8.2)
[2019-04-28 12:42] LABS: Bun/Creatinine Ratio 8.4 (12.0-20.0); Creatinine, Blood 7.05 mg/dL (0.60-1.20)
[2019-04-28 12:44] LABS: International Normalized Ratio 1.33
--- NOTE | 2019-04-28 17:57 | NUR ---
PT ARRIVAL.... PT ARRIVED ON UNIT APROX 1700. PT IS A&Ox4 AND SBA IN THE ROOM. PT WAS ADMITTED FOR AFIB/FLUTTER IN THE 130'S-140'S. PT DENIES CHEST PAIN AT THIS TIME. PT'S SBP WAS 102. PT DENIES SOB. PT IS TO HAVE US GUIDED PARACENTISIS AND A PLURIX DRAIN PLACED. PT WAS ABLE TO SELF TRANSFER FROM THE GURNEY TO THE BED. PT'S L/S CLEAR IN THE UPPER DIM IN THE LOWER. PT IS ON RA. WILL CONTINUE TO MONITOR
[2019-04-28] MEDS ORDERED: HYDHCL25 PO ×2 (18:35)
--- NOTE | 2019-04-28 19:40 | NUR ---
Assumed care Pt presents lying in bed, watching tv, breathing even and unlabored. No apparent sign of distress. ABD firm, distended, non tender. 3+ Pitting edema to BLE under knee, 2+ pitting edema BLE above knees. Pt alert and oriented, VSS, aflutter 130 on tele. Amio gtt infusing, rate verified with offgoing RN. Pt denies pain, conversing appropriately. Pt denies chest pain or pressure, denies dizziness. Pt instructed to call before ambulation, compliant and using call light appropraitely. No acute concers not note at begining of shift. Will continue to monitor.
--- NOTE | 2019-04-28 20:00 | NUR ---
AMIO GTT TITRATED TO 0.5 PER ORDERS, TWO RN VERIFICATION PERFORMED WITH THIS RN AND IMANI PRECIADO RN
--- NOTE | 2019-04-29 05:55 | NUR ---
Shift Summary No acute events overnight. Paracentesis planned for this AM, US guided. Pt aware. VSS. Pt remains on RA, alert and oriented. No acute changes from initial shift assessment. Amio gtt infusing at 0.5 mg/hr. Pt ambulates steady, denies dizziness with standing. Aflut in 120-130s sustained this shift. Pt uses call light to make needs known. Will continue to monitor.
[2019-04-29 06:06] LABS: BASOPHILS ABSOLUTE AUTO 0.04 K/mm3 (0.00-0.23); BASOPHILS PERCENT AUTO 1 % (0-2); EOSINOPHILS ABSOLUTE AUTO 0.21 K/mm3 (0.00-0.68); EOSINOPHILS PERCENT AUTO 4 % (0-6); Hematocrit 25.3 % (37.0-53.0); Hemoglobin 8.8 g/dL (13.5-17.5); IMMATURE GRAN ABSOLUTE AUTO 0.03 K/mm3 (0.00-0.10); IMMATURE GRAN PERCENT AUTO 1 % (0-1); LYMPHOCYTES ABSOLUTE AUTO 0.37 K/mm3 (0.84-5.20); LYMPHOCYTES PERCENT AUTO 7 % (21-46); MONOCYTES ABSOLUTE AUTO 0.79 K/mm3 (0.16-1.47); MONOCYTES PERCENT AUTO 15 % (4-13); Mean Corpuscular HGB 31.2 pg (26.0-34.0); Mean Corpuscular HGB Conc 34.8 g/dL (31.5-36.5); Mean Corpuscular Volume 90 fL (80-100); Mean Platelet Volume 12.1 fL (9.1-12.4); NEUTROPHILS ABSOLUTE AUTO 3.79 K/mm3 (1.96-9.15); NEUTROPHILS PERCENT AUTO 72 % (41-73); Platelet Count 117 K/mm3 (150-400); RDW Coefficient Variation 20.2 % (11.7-14.2); RDW Standard Deviation 63.2 fL (35.1-46.3); Red Blood Cell Count 2.82 M/mm3 (4.30-5.90); White Blood Cell Count 5.23 K/mm3 (4.00-11.30)
[2019-04-29 06:27] LABS: Albumin, Blood 2.5 g/dL (3.4-5.0); Albumin/Globulin Ratio 0.5 (0.8-1.8); Bilirubin, Total 5.4 mg/dL (0.1-1.0); Creatinine, Blood 7.55 mg/dL (0.60-1.20); Globulin, Blood 4.8 g/dL (2.2-4.0); Total Protein, Blood 7.3 g/dL (6.4-8.2)
--- NOTE | 2019-04-29 08:15 | NUR ---
AM NOTE... ASSUMED CARE OF PT APROX 0700, PT IS A&Ox4 AND IND IN THE ROOM. PT WAS ADMITTED FOR AFLUTTER RVR AND IS ON AMNIO GTT AT 16.6MLS/HR. PT'S VS STABLE. DR. VINCENT IN THE ROOM THIS AM, PT IS TO HAVE PARACENTESIS TODAY AND DIALYSIS TOMORROW. PT IS AGREEABLE TO THIS PLAN OF CARE. THIS RN WAS TALKING WITH THE PT ABOUT HIS FULL CODE STATUS DURING ADMIT, PT STATED HE WANTED TO BE A DNR BUT "YOU HAD BETTER ASK MY ." WHEN THE CAME IN THE ROOM CODE STATUS WAS BROUGHT UP AGAIN, THE PT STATED THAT HE WANTED TO BE A DNR BUT HIS BECAME VERY EMOTIONAL STATING "THERE IS NOTHING WRONG WITH HIM RIGHT NOW! IF HIS HEART STOPS YOU HAD BETTER DO EVERY THING YOU CAN TO BRING HIM BACK!" THIS RN TRIED TO EDUCATE THE ON CPR AND THE CHANCES OF SURVIVING A CODE AND WHAT THE RECOVERY OF BROKEN RIBS WOULD BE LIKE FOR THE PT. PT STATED HE UNDERSTOOD AND WANTED TO BE A DNR BUT THEN STATED "BUT ITS WHAT EVER MY WANTS." THIS RN TOLD THE PT THAT WE WANTED TO FOLLOW HIS WISHES AND NOT HIS 'S BUT HE STATED "MY WISHES ARE WHAT MY WISHES." CURRENTLY THE PT IS STILL A FULL CODE. CALL LIGHT IN REACH WILL CONTINUE TO MONITOR.
--- NOTE | 2019-04-29 13:15 | NUR ---
PT UPDATE... PT WAS TAKEN FOR ULTRA SOUND GUIDED PARACENTESIS, 10.3L WAS REMOVED. IV ALBUMIN WAS ORDERED. PT'S VS STABLE. PT DENIES PAIN/CRAMPING AT THIS TIME. PT ABLE TO SELF TRANSFER FROM THE W/C TO THE BED. WILL CONTINUE TO MONITOR.
[2019-04-29] MEDS ORDERED: Amiodarone HCl200 MG PO ×2 (15:27)
--- NOTE | 2019-04-29 15:56 | NUR ---
PT D/C HOME... PT D/C HOME WITH . D/C EDUCATION PROVIDED AND NEW MEDICATION EDUCATION PROVIDED. 2 IVS REMOVED WNL. ALL OF PT'S BELONGINGS PACKED AND SENT WITH THE PT.
== END 2019-04-29 16:00 | disposition home or self-care (01) ==
LOC: ER 11:52 → ERHOLD 11:53 → PCU 11:53 → ERHOLD 16:54 → PCU 17:01
PROVIDERS: Emergency Medicine; ADMIT Internal Medicine
DX: I48.92 Unspecified atrial flutter (principal); K70.31 Alcoholic cirrhosis of liver with ascites; I12.0 Hypertensive chronic kidney disease with stage 5 chronic kidney disease or end stage renal disease; E11.22 Type 2 diabetes mellitus with diabetic chronic kidney disease; D63.1 Anemia in chronic kidney disease; Z99.2 Dependence on renal dialysis; Z86.19 Personal history of other infectious and parasitic diseases; Z79.899 Other long term (current) drug therapy; Z87.891 Personal history of nicotine dependence
CPT/HCPCS: 36415; 49083; 71045; 80053; 82947; 83735; 84484; 85025; 85610; 93005; 93010; 96365; 96366; 96367; 96372; 99285-25; G0378; J0282; J0881; J7060; P9046

== ENCOUNTER 2019-05-12 00:19 | Day surgery (SDC) | payer OTHER ==
[~2019-05-12 00:19] MED LIST changes: +Amiodarone HCl200 MG PO
[2019-05-12] MEDS ORDERED: Midodrine HCl10 MG PO (10:08)
== END 2019-05-12 23:03 | disposition home or self-care (01) ==
LOC: US 00:19
DX: K70.31 Alcoholic cirrhosis of liver with ascites (principal); B19.20 Unspecified viral hepatitis C without hepatic coma; I12.9 Hypertensive chronic kidney disease with stage 1 through stage 4 chronic kidney disease, or unspecified chronic kidney disease; E11.22 Type 2 diabetes mellitus with diabetic chronic kidney disease; N18.9 Chronic kidney disease, unspecified; D63.1 Anemia in chronic kidney disease; Z79.899 Other long term (current) drug therapy; Z87.891 Personal history of nicotine dependence
CPT/HCPCS: P9046

== ENCOUNTER 2019-05-12 08:33 | Day surgery (SDC) | payer OTHER ==
[~2019-05-12] VITALS: Ht 182.9 cm; Wt 97.0 kg
--- NOTE | 2019-05-12 09:51 | NUR ---
PT ADMITTED TO [facility]. AGREES WITH PLANNED SURGERY. LUNG SOUNDS DIMINISHED TO BASES. PITTING EDEMA TO LOWER EXTREMITIES. PT STATES DIALYSIS YESTERDAY AND DRAINED FLUID OF ABD LAST THURSDAY.
[2019-05-12] MEDS ORDERED: Midodrine HCl10 MG PO (10:08)
--- NOTE | 2019-05-12 10:55 | NUR ---
05/12/19 Katarzyna Fulton 3850ML ABDOMINAL FLUID DRAINED INTO DORNACH INTRAOPERATIVELY
--- NOTE | 2019-05-12 11:30 | NUR ---
DR MEDRANO AWARE OF VS AND STATES HE HAS NO DIFFERENT ORDERS AT THIS TIME ON ADMIT TO PACU
== END 2019-05-12 12:20 | disposition home or self-care (01) ==
LOC: ORSCMMR 08:33 → ORD 10:00 → ORSCMMR 12:20
PROVIDERS: Surgery
PROC: 0W9F30Z Drainage of Abdominal Wall with Drainage Device, Percutaneous Approach (ICD-10-PCS; principal; 2019-05-12 10:00)
DX: K70.31 Alcoholic cirrhosis of liver with ascites (principal); I12.0 Hypertensive chronic kidney disease with stage 5 chronic kidney disease or end stage renal disease; E11.22 Type 2 diabetes mellitus with diabetic chronic kidney disease; N18.6 End stage renal disease; C22.9 Malignant neoplasm of liver, not specified as primary or secondary; C78.00 Secondary malignant neoplasm of unspecified lung; Z87.891 Personal history of nicotine dependence; Z86.73 Personal history of transient ischemic attack (TIA), and cerebral infarction without residual deficits
CPT/HCPCS: 82435; 82947; 84132; 84295; C1729; J0690; J2250; J2704; J3010; J7030

== ENCOUNTER 2019-05-19 00:02 | Day surgery (SDC) | payer OTHER ==
[~2019-05-19 00:02] MED LIST changes: +Midodrine HCl10 MG PO
== END 2019-05-19 22:45 | disposition home or self-care (01) ==
LOC: US 00:02
DX: K70.31 Alcoholic cirrhosis of liver with ascites (principal); B19.20 Unspecified viral hepatitis C without hepatic coma; I12.9 Hypertensive chronic kidney disease with stage 1 through stage 4 chronic kidney disease, or unspecified chronic kidney disease; E11.22 Type 2 diabetes mellitus with diabetic chronic kidney disease; N18.9 Chronic kidney disease, unspecified; D63.1 Anemia in chronic kidney disease; Z87.891 Personal history of nicotine dependence; Z79.899 Other long term (current) drug therapy
CPT/HCPCS: P9046

== ENCOUNTER 2019-05-21 03:34 | Inpatient (IN) | payer OTHER ==
[~2019-05-21] VITALS: Ht 182.9 cm; Wt 95.8 kg
[2019-05-21] MEDS ORDERED: BENADRYL25 MG PO (03:53)
[2019-05-21] MEDS ORDERED: DILT120ERA PO (03:53)
[2019-05-21 03:56] LABS: BASOPHILS ABSOLUTE AUTO 0.03 K/mm3 (0.00-0.23); BASOPHILS PERCENT AUTO 0 % (0-2); EOSINOPHILS ABSOLUTE AUTO 0.04 K/mm3 (0.00-0.68); EOSINOPHILS PERCENT AUTO 0 % (0-6); Hematocrit 23.7 % (37.0-53.0); Hemoglobin 7.8 g/dL (13.5-17.5); IMMATURE GRAN ABSOLUTE AUTO 0.17 K/mm3 (0.00-0.10); IMMATURE GRAN PERCENT AUTO 2 % (0-1); LYMPHOCYTES PERCENT AUTO 7 % (21-46); MONOCYTES ABSOLUTE AUTO 2.01 K/mm3 (0.16-1.47); MONOCYTES PERCENT AUTO 18 % (4-13); Mean Corpuscular HGB Conc 32.9 g/dL (31.5-36.5); Mean Corpuscular Volume 97 fL (80-100); Mean Platelet Volume 12.4 fL (9.1-12.4); NEUTROPHILS ABSOLUTE AUTO 8.46 K/mm3 (1.96-9.15); NEUTROPHILS PERCENT AUTO 73 % (41-73); Platelet Count 150 K/mm3 (150-400); RDW Coefficient Variation 19.8 % (11.7-14.2); RDW Standard Deviation 69.3 fL (35.1-46.3); Red Blood Cell Count 2.44 M/mm3 (4.30-5.90); White Blood Cell Count 11.51 K/mm3 (4.00-11.30)
[2019-05-21 04:10] LABS: International Normalized Ratio 1.66; Prothrombin Time Results 17.3 Sec (9.7-11.5)
[2019-05-21 04:25] LABS: Albumin, Blood 1.6 g/dL (3.4-5.0); Albumin/Globulin Ratio 0.4 (0.8-1.8); Bilirubin, Total 3.4 mg/dL (0.1-1.0); Bun/Creatinine Ratio 5.2 (12.0-20.0); Calcium, Blood 7.6 mg/dL (8.5-10.1); Creatinine, Blood 4.21 mg/dL (0.60-1.20); Globulin, Blood 4.5 g/dL (2.2-4.0); Potassium, Blood 3.5 mmol/L (3.5-5.5); Total Protein, Blood 6.1 g/dL (6.4-8.2)
--- NOTE | 2019-05-21 07:30 | NUR ---
BEGINNING OF SHIFT Assumed care at 0700. This RN entered room to find patient throwing legs over bed, attempting to get out of bed. Pt stated he wanted to sit up on the edge of the bed. This RN assisted pt to sit on edge of bed. Pt leaned forward, became unresponsive and slid off edge of bed. Pt's knees contacted ground and pt fell forward while this RN at bedside. Pt lifted back to bed using 5 staff. Vital signs obtained. Pt hypotensive. Responsive to verbal stimulus, and answering questions with one-two word answers. Dr Ojeda notified. Provider at bedside shortly. Rate of blood transfusion increased. Combination Worker consult obtained. Notified by clinic charge nurse Stacey. This RN called Dr Mejia's cell phone to notify provider of consult and discuss pt's current condition. Provider states he will be in to see pt shortly.
--- NOTE | 2019-05-21 07:30 | NUR ---
BEGINNING OF SHIFT Assumed care at 0700. This RN entered room to find patient throwing legs over bed, attempting to get out of bed. Pt stated he wanted to sit up on the edge of the bed. This RN assisted pt to sit on edge of bed. Pt leaned forward, fell to knees and became unrepsonsive. Pt lifted back to bed using 5 staff. Vital signs obtained. Pt hypotensive. Responsive to pain. Dr Ojeda notified. Provider at bedside shortly. Rate of blood increased. Respiratory Therapist consult obtained. Notified by discharge coordinator Stacey. This RN called Dr Mejia's cell phone to notify provider of consult and discuss pt's current condition. Provider states he will be in to see pt shortly.
--- NOTE | 2019-05-21 07:50 | NUR ---
SHIFT SUMMARY PATIENT ARRIVED FROM THE ED @ 05:43. WAS ORIENTED TO THE ROOM AND COMPLETED NEARLY ALL OF THE ADMISSION ASSESSMENT, ONLY NEEDING VERIFICATION OF HOME MEDICATIONS THIS IS MANAGED BY HIS , PASCUAL NARAYAN. PATIENT AGREED TO RECEIVE BLOOD PRODUCTS AND WAS STARTED ON 1U PRBCs. WAS UNABLE TO START CARDIZEM DRIP, PATIENT BLOOD PRESSURE TOO LOW TO BEGIN. STILL LISTED NPO, UNABLE TO REACH NIGHT HOSPITALIST, DID NOT GIVE MIDODRINE AWAITING CLARIFICATION OF STATUS. NO VOMITING/ RECTAL BLEEDING NOTED. PATIENT FULLY AWAKE, ALERT, COOPERATIVE WITH DESCRIBED SAFETY MEASURES OF UNIT. INFORMED NOT TO EXIT BED BY SELF, NEED TO CALL FOR STAFF. WILL CONTINUE TO MONITOR.
--- NOTE | 2019-05-21 08:44 | NUR ---
CENTRAL LINE / PLANS FOR ENDOSCOPY Dr Jeter at bedside currently placing central line. Pt's at bedside shortly before. She met with Dr Jeter and Dr Mejia. Plans for endoscopy. Levophed at 6 mcg/min. Pt currently receiving blood through dialysis catheter. GISSEL Rutledge pemitted dialysis catheter access. Catheter accessed by charge out clerk Stacey.
--- NOTE | 2019-05-21 09:00 | NUR ---
MENTATION Pt confused. Answers some questions appropriately. Pt verbalizes needs such as "I can't lay in this position", but sometimes has inappropriate speech "I think the remote is in the living room". Follows commands. Head CT ordered by Dr Ojeda delayed to pt instability at this time and need for transfusion.
--- NOTE | 2019-05-21 10:16 | NUR ---
UPDATE Plan for pt to be intubated for procedure for airway protection. Providers aware of DNR/DNI. Pt and family aware of plan. Additional 2 units PRBC given using rapid infuser. Vasopressin infusing. Levophed at 20 mcg/min. Pt alert, not as confused as previously noted. Color improved. Anesthesiologist at bedside for intubation at this time.
--- NOTE | 2019-05-21 10:22 | NUR ---
05/21/19 1022 Latonia Bennett A PATIENT BEING BEING INTUBATED AT THIS TIME.
--- NOTE | 2019-05-21 10:30 | NUR ---
INTUBATION Pt intubated at 1022 with 7.5 cm ETT, 24 cm TORIBIO. Intubation done by Dr Henderson, anesthesiologist. Pt connected to ventilator AC 14/550/5/100%. SpO2 90% or greater. EGD to be performed.
--- NOTE | 2019-05-21 11:30 | NUR ---
EGD COMPLETE Plan for patient to remain intubated. Pt remains on same settings. Propofol to be given as BP permits. Currently 10 mcg/kg/min propofol. Vitals stable at this time.
[2019-05-21 12:18] LABS: Hematocrit 31.9 % (37.0-53.0); Hemoglobin 10.1 g/dL (13.5-17.5)
--- NOTE | 2019-05-21 13:17 | NUR ---
LOW BP Low BP per monitor. Manual BP 94/56 per charge coordinator Stacey. Pt awake, shaking head yes and no to answer questions.
[2019-05-21 16:52] LABS: Hematocrit 32.3 % (37.0-53.0); Mean Corpuscular HGB 30.2 pg (26.0-34.0); Mean Corpuscular Volume 98 fL (80-100); Mean Platelet Volume 12.5 fL (9.1-12.4); NRBC ABSOLUTE 0.04 K/mm3 (0.00-0.02); NRBC Auto 0.3 /100 WBC (0.0-0.2); Platelet Count 107 K/mm3 (150-400); RDW Coefficient Variation 17.3 % (11.7-14.2); RDW Standard Deviation 59.7 fL (35.1-46.3); Red Blood Cell Count 3.31 M/mm3 (4.30-5.90); White Blood Cell Count 15.84 K/mm3 (4.00-11.30)
[2019-05-21 16:58] LABS: International Normalized Ratio 2.69; Prothrombin Time Results 27.2 Sec (9.7-11.5)
[2019-05-21 17:17] LABS: BAND PERCENT MAN 4 % (0-8); BASOPHILS PERCENT MAN 0 % (0-2); EOSINOPHILS ABSOLUTE MAN 0.63 K/mm3 (0.00-0.68); EOSINOPHILS PERCENT MAN 4 % (0-6); LYMPHOCYTES PERCENT MAN 7 % (21-46); METAMYELOCYTE ABSOLUTE MAN 0.15 K/mm3 (0.00-0.00); METAMYELOCYTE PERCENT MAN 1 % (0-0); MONOCYTES ABSOLUTE MAN 2.53 K/mm3 (0.16-1.47); MONOCYTES PERCENT MAN 16 % (4-13); MYELOCYTE ABSOLUTE MAN 0.15 K/mm3 (0.00-0.00); MYELOCYTE PERCENT MAN 1 % (0-0); NEUTROPHILS ABSOLUTE MAN 11.24 K/mm3 (1.96-9.15); SEG NEUTROPHILS PERCENT MAN 67 % (41-73); TOTAL CELLS COUNTED 100
--- NOTE | 2019-05-21 18:00 | NUR ---
SUMMARY Pt remains on ventilator. Settings currently AC 14/450/5/50. SpO2 90% or greater, SpO2 sensor on ear lobe- poor pleth noted. Tidal volume setting changed by Dr Jeter. Unable to obtain BP using monitor. Only able to obtain BP manually using doppler. From [id number], SBP 55-65. At 1800, SBP 72 per doppler. Pt off propofol. Currently receiving levophed 40 mcg/kg/min. Dr Jeter aware of rate of levophed. Pt also receiving vasopressin. Pt opens eyes spontaneously. Nods head "yes" or "no" to questions. Squeezes this RN's hands when instructed to do so. Pt agitated, hitting side rails with hands. Dr Jeter aware of agitation. Plan for fentanyl IV and precedex IV. Provider aware of BP and would like medication titrated for agitation. Pt's spouse has departed for evening; states plan to visit in the AM. Prior to her departure, this RN asked pt's spouse how she would like staff to respond to pt's agitation and visible discomfort. She stated "I want you to make him comfortable". This RN educated that medication for pain and agitation may affect pt's vital signs negatively. Pt's verbalizes understanding and reinforces that medicating pt's agitation and discomfort is okay. Plan for administration of FFP due to elevated PT, per Dr Jones. Sample obtained from pt's peritoneal drain and sent for culture by Margarita CHAUHAN. Will continue to closely monitor pt until care handoff and bedside report with oncoming RN.
[2019-05-21 18:12] LABS: Automated BF WBC Count 0.103 K/mm3 (0-999); Body Fluid WBC Count 103 /mm3 (0-999)
[2019-05-21 18:46] LABS: RBC Count, Body Fluid 587 /mm3 (0-0)
[2019-05-21 18:51] LABS: Total Cell Count, Body Fluid 100
[2019-05-21 18:55] LABS: Appearance, Body Fluid Clear (Clear); Color, Body Fluid Yellow (None-Yellow)
[2019-05-21 21:25] LABS: Hematocrit 28.5 % (37.0-53.0); Hemoglobin 8.9 g/dL (13.5-17.5)
[2019-05-22 03:25] LABS: Hematocrit 24.6 % (37.0-53.0); Hemoglobin 7.8 g/dL (13.5-17.5); Mean Corpuscular HGB 30.8 pg (26.0-34.0); Mean Corpuscular HGB Conc 31.7 g/dL (31.5-36.5); Mean Corpuscular Volume 97 fL (80-100); Platelet Count 93 K/mm3 (150-400); RDW Coefficient Variation 18.8 % (11.7-14.2); RDW Standard Deviation 64.4 fL (35.1-46.3); Red Blood Cell Count 2.53 M/mm3 (4.30-5.90); White Blood Cell Count 20.65 K/mm3 (4.00-11.30)
[2019-05-22 03:28] LABS: Mean Platelet Volume 13.6 fL (9.1-12.4)
[2019-05-22 03:45] LABS: Magnesium, Blood 2.3 mg/dL (1.6-2.4)
[2019-05-22 03:55] LABS: Albumin, Blood 1.5 g/dL (3.4-5.0); Albumin/Globulin Ratio 0.5 (0.8-1.8); Bilirubin, Total 4.5 mg/dL (0.1-1.0); Bun/Creatinine Ratio 5.9 (12.0-20.0); Calcium, Blood 8.1 mg/dL (8.5-10.1); Creatinine, Blood 4.88 mg/dL (0.60-1.20); Globulin, Blood 2.9 g/dL (2.2-4.0); Phosphorus, Blood 13.9 mg/dL (2.5-4.9); Potassium, Blood 5.5 mmol/L (3.5-5.5); Total Protein, Blood 4.4 g/dL (6.4-8.2)
[2019-05-22 06:10] LABS: BAND PERCENT MAN 6 % (0-8); BASOPHILS PERCENT MAN 0 % (0-2); EOSINOPHILS PERCENT MAN 0 % (0-6); LYMPHOCYTES ABSOLUTE MAN 2.06 K/mm3 (0.84-5.20); LYMPHOCYTES PERCENT MAN 10 % (21-46); MONOCYTES ABSOLUTE MAN 1.44 K/mm3 (0.16-1.47); MONOCYTES PERCENT MAN 7 % (4-13); MYELOCYTE PERCENT MAN 1 % (0-0); NEUTROPHILS ABSOLUTE MAN 16.93 K/mm3 (1.96-9.15); SEG NEUTROPHILS PERCENT MAN 76 % (41-73); TOTAL CELLS COUNTED 100
[2019-05-22 07:15] LABS: PCO2 Arterial 27.6 mmHg (35-45); PO2 Arterial 303 mmHg (80-100)
[2019-05-22 07:17] LABS: pH Blood Arterial 6.83 (7.35-7.45)
--- NOTE | 2019-05-22 07:29 | NUR ---
SHIFT SUMMARY SPOKE WITH DR KRISHNAN EARLY IN SHIFT ABOUT INABILITY TO OBTAIN ACCURATE BP, SPO2 READINGS. NOT CURRENTLY CONCERNED, NOT WANTING TO ADVANCE TREATMENT. STACKING BREATHS TOO, TRY TO SEDATE FURTHER TO OBTAIN VENT SYNCRONICITY. DOPPLING BLOOD PRESSURES RESULTED IN SYSTOLICS OF AROUND 90 UP UNTIL ABOUT 23:00, STARTED OBTAINING GOOD BP READINGS. WAS ABLE TO DECREASE VASOPRESSERS TIL VASOPRESSOR DRIP OFF, LEVOPHED DECREASED TO 5 MCG/MIN. 1 UNIT PRBC WAS GIVEN FOR HEMOGLOBIN OF 7.8. WHILE TURNING, DID HAVE X2 BOUTS OF HEMATEMESIS. BATH COMPLETED. VSS. IT HAS BEEN A PLEASURE TAKING CARE OF THIS PATIENT.
--- NOTE | 2019-05-22 08:38 | NUR ---
ASSUMED CARE OF PT AT 0700. REPORT FROM SHONNA CHAUHAN. PT INTUBATED AND SEDATED. VENT SETTINGS AC 450/14/5/100%. PT SEDATED c PROPOFOL AT 5 MCG/KG/MIN AND FENTANYL AT 100 MCG/HR. PT UNRESPONSIVE TO PAINFUL STIMULI. NO CORNEAL REFLEX. COUGH PRESENT. INTERMITTANTLY BREATHING OVER VENT. PT MOVING HEAD UP AND DOWN INTERMITTANTLY. PUPILS 2 MM, REACTIVE. SKIN JAUDICE. MOTTLING AND DELAYED REFILL TO LOWER EXTREMITIES. ALL EXTREMTIES COOL TO TOUCH. TEMPORAL ARTERY TEMP 96.2. LEVOPHED INFUSING AT 5 MCG/MIN AT START OF SHIFT. VASOPRESSIN ON STANDBY. DIALYSIS PERMACATH TO RIGHT CHEST WALL ACCESSED PRIOR TO SHIFT. INFUSING. PER NOC RN, SPEECH THERAPIST TECHNICIAN AWARE. WILL CONTINUE TO TITRATE FOR MAP >65. ABD FIRM, DISTENDED. DRESSING TO ABD FOR DRAINAGE TO HOME PLEURX C/D/I. SCDS IN PLACE. PROTONIX AT 8 MG/HR, OCTREOTIDE AT 25 MCG/HR, FENTANYL AT 100 MCG/HR, AND BICARB AT 100 ML/HR INFUSING. DR AMARO ROUNDED THIS AM. INCREASED BICARB DRIP TO 150 ML/HR AND 4 AMP OF BICARB IV GIVEN AFTER ABG RESULTS. DR APPLE ALSO ROUNDED THIS AM. AT BEDSIDE. UPDATED ON STATUS. AWAITING SOFTWARE TEST DEVELOPER ROUNDING. WILL CONTINUE TO MONITOR.
--- NOTE | 2019-05-22 09:25 | NUR ---
DR KRISHNAN TO ROOM. AT BEDSIDE. MORNING LABS AND PROGNOSIS DISCUSSED. REQUESTING PT BE MADE COMFORT CARE. STATES SHE WILL RETURN AT [address] KRISHNAN, WILL CONTINUE PRESSORS, SEDATION AND BICARB, WILL D/C PROTONIX AND OCTREOTIDE AFTER CURRENT INFUSIONS COMPLETE. WILL HOLD ALL BLOOD DRAWS AND PROCEDURES. DR AMARO AND DR APPLE NOTIFIED. KEZIA AT BEDSIDE.
--- NOTE | 2019-05-22 09:36 | NUR ---
DR. AMARO NOTIFIED OF DECISION TO WITHDRAWL CARE THIS AFTERNOON.
--- NOTE | 2019-05-22 14:30 | NUR ---
RHYTHM CHANGE NOTED. WIDE QRS, PAL FEMORAL PULSE, DISTAL PULSE NOT PALPABLE. CALLED TO UPDATE ON PT STATUS AND RECOMMEND COMING TO HOSPITAL PRIOR TO 1600. STATES SHE WILL BE HERE AT 1500. PALLATIVE CARE AND RT NOTIFIED.
--- NOTE | 2019-05-22 15:19 | NUR ---
PT EXTUBATED AT 1510. VASOPRESSIN, LEVOPHED, BICARB AND OCTREOTIDE STOPPED. FENTANYL INFUSION CONTINUED. AT BEDSIDE. KEZIA CHAUHAN IN ROOM. TOD 1517.
--- NOTE | 2019-05-22 19:35 | NUR ---
Mutiple visits to help with end of life. pt extubated and apssed away. information given to on mortuaries, [employer] benefits and social security. will follow up for berievment.
[2019-05-23 10:06] LABS: HBSAG SCREEN Negative (Negative); HEP A AB, IGM Negative (Negative); HEP B CORE AB, IGM Negative (Negative); HEP C VIRUS AB >11.0 (0.0-0.9)
== END 2019-05-22 16:30 | DRG 432 ==
LOC: ER 03:34 → ICUW 03:35
PROVIDERS: Emergency Medicine; Internal Medicine Gastroenterology; Internal Medicine Nephrology; ADMIT Internal Medicine
PROC: 30233N1 Transfusion of Nonautologous Red Blood Cells into Peripheral Vein, Percutaneous Approach (ICD-10-PCS; 2019-05-21)
PROC: 3E033XZ Introduction of Vasopressor into Peripheral Vein, Percutaneous Approach (ICD-10-PCS; 2019-05-21)
PROC: 06L38CZ Occlusion of Esophageal Vein with Extraluminal Device, Via Natural or Artificial Opening Endoscopic (ICD-10-PCS; principal; 2019-05-21 09:30)
DX: K70.31 Alcoholic cirrhosis of liver with ascites (principal); I85.11 Secondary esophageal varices with bleeding; N18.6 End stage renal disease; Z51.5 Encounter for palliative care; J96.01 Acute respiratory failure with hypoxia; K72.00 Acute and subacute hepatic failure without coma; C22.0 Liver cell carcinoma; E87.1 Hypo-osmolality and hyponatremia; I48.92 Unspecified atrial flutter; E87.2 Acidosis; F10.20 Alcohol dependence, uncomplicated; E11.22 Type 2 diabetes mellitus with diabetic chronic kidney disease; D63.1 Anemia in chronic kidney disease; Z99.2 Dependence on renal dialysis; Z79.4 Long term (current) use of insulin; R57.8 Other shock
CPT/HCPCS: 31500; 31720; 36415; 36430; 36556; 36600; 80053; 80074; 82803; 82947; 83735; 84100; 85014; 85018; 85025; 85610; 86317; 86850; 86900; 86901; 86923; 87040; 87070; 87205; 89051; 93005; 93010; 94002; 94003; 96365; 96366; 96367; 96368; 96375; 96376; 99285-25; A9270-GY; C1769; C9113; G0378; J0171; J0330; J0696; J0881; J2001; J2354; J2370; J2405; J2704; J2765; J3010; J7030; J7040; J7050; J7060; J7070; J7120; P9016; P9041; P9046; P9059